=== PATIENT | female | born 1955 | race Caucasian/White ===

== ENCOUNTER → 2016-09-15 | Outpatient (CLI) | payer BC ==
[~2016-09-15] VITALS: Ht 165.1 cm; Wt 90.7 kg
[~2016-09-15] MED LIST: ASPI1TAB PO; ATOR1TAB21 PO; CELE-19 PO; LEVO175T2 PO; LIDOCAINE 2% INJ 100 MG/5 ML SDV (FOR ANES.) As Ordered ONE; NS 1,000 ML IV SCH; PROPOFOL 200 MG/20 ML VIAL As Ordered ONE; TOPR50TA PO; VITA-112 PO
--- NOTE | 2016-09-15 14:18 | ROOR ---
Patient Name: Irlanda Tabares Procedure Date: 09/15/2016 1:52 PM Date of : 1955 Age: 61 Room: [facility] Gender: Female Note Status: Finalized Procedure: Colonoscopy to Cecum + Biopsies Indications: Clinically significant diarrhea of unexplained origin, Change in bowel habits Providers: Myron Dixon MD Referring MD: DEYSI CEDILLO Requesting Provider: Medicines: Monitored Anesthesia Care Complications: No immediate complications. Procedure: Pre-Anesthesia Assessment: - The heart rate, respiratory rate, oxygen saturations, blood pressure, adequacy of pulmonary ventilation, and response to care were monitored throughout the procedure. The Colonoscope was introduced through the anus and advanced to the cecum, identified by appendiceal orifice and ileocecal valve. The colonoscopy was performed without difficulty. The patient tolerated the procedure well. The quality of the bowel preparation was excellent. Findings: The perianal and digital rectal examinations were normal. Non-bleeding internal hemorrhoids were found during retroflexion. The hemorrhoids were small and Grade I (internal hemorrhoids that do not prolapse). A diffuse area of mildly altered vascular mucosa was found in the rectum. Biopsies were taken with a cold forceps for histology. Scattered small-mouthed diverticula were found in the recto-sigmoid colon, sigmoid colon and descending colon. Biopsies for histology were taken with a cold forceps from the ascending colon, transverse colon and descending colon for evaluation of microscopic colitis. The exam was otherwise without abnormality on direct and retroflexion views. Impression: - Non-bleeding internal hemorrhoids. - Altered vascular mucosa in the rectum. Biopsied. - Diverticulosis in the recto-sigmoid colon, in the sigmoid colon and in the descending colon. - The examination was otherwise normal on direct and retroflexion views. - Biopsies were taken with a cold forceps from the ascending colon, transverse colon and descending colon for evaluation of microscopic colitis. - The exam was otherwise normal to the cecum. Recommendation: - Patient has a contact number available for emergencies. The signs and symptoms of potential delayed complications were discussed with the patient. Return to normal activities tomorrow. Written discharge instructions were provided to the patient. - Discharge patient to home. - Continue present medications. - Await pathology results. - Telephone GI clinic for pathology results in 1 week. - Repeat colonoscopy in 10 years for screening purposes. - Return to referring physician. - Use Canasa 1000 mg suppository 1 per rectum QHS. - The findings and recommendations were discussed with the patient's family. Myron Dixon MD Myron Dixon MD 09/15/2016 2:18:14 PM This report has been signed electronically. Number of Addenda: 0 Note Initiated On: 09/15/2016 1:52 PM Estimated Blood Loss: Estimated blood loss: none.
[2016-09-15 14:35] VITALS: BP 156/78
== END ==
LOC: M OPP 13:17
PROVIDERS: ATTEND Internal Medicine Gastroenterology
DX: R19.7 Diarrhea, unspecified (principal); R19.4 Change in bowel habit; K64.0 First degree hemorrhoids; K57.30 Diverticulosis of large intestine without perforation or abscess without bleeding; K62.89 Other specified diseases of anus and rectum; Z85.42 Personal history of malignant neoplasm of other parts of uterus; Z92.3 Personal history of irradiation; I10 Essential (primary) hypertension; E78.00 Pure hypercholesterolemia, unspecified; K21.9 Gastro-esophageal reflux disease without esophagitis; K44.9 Diaphragmatic hernia without obstruction or gangrene; E07.9 Disorder of thyroid, unspecified; K58.2 Mixed irritable bowel syndrome; R53.83 Other fatigue; Z79.82 Long term (current) use of aspirin; Z79.899 Other long term (current) drug therapy; Z88.0 Allergy status to penicillin

== ENCOUNTER → 2016-12-01 | Outpatient (CLI) | payer BC ==
[~2016-12-01] MED LIST changes: -LIDOCAINE 2% INJ 100 MG/5 ML SDV (FOR ANES.) As Ordered ONE; -NS 1,000 ML IV SCH; -PROPOFOL 200 MG/20 ML VIAL As Ordered ONE
--- NOTE | 2016-12-01 17:15 | REP ---
MRI right ankle without contrast: History: Right ankle pain. Comparison radiographs are from 06/20/2015. Technique: Axial, sagittal and coronal imaging planes utilized. T1, proton density and T2-weighted scans were obtained in the usual fashion with without fat saturation. MRI findings: There is both anteromedial and lateral soft tissue swelling in the subcutaneous fat layer about and above the ankle. Cortical and medullary bone signal intensity are normal however. No occult fracture is seen. There is plantar and Achilles calcaneal spurring. There is some increased signal intensity in the distal 3 cm of the Achilles tendon consistent with chronic Achilles tendinopathy. No discontinuity. Plantar fascia is smooth with no nodularity. The tibial plafond and the talar dome are intact. There is a 8 mm accessory ossicle just below the medial malleolus. The deltoid ligamentous complex is otherwise intact. The calcaneofibular, posterior talofibular, and posterior inferior tibiofibular ligaments are intact. The anterior talofibular and anterior inferior tibiofibular ligaments have an intact appearance. There is some swelling and increased T1 and increased T2 signal intensity diffusely in the tibialis posterior tendon distally. Flexor digitorum and flexor hallucis longus tendons appear intact medially. Laterally, the peroneus longus and brevis tendons are unremarkable. Sinus tarsi is unremarkable. There is minimal talonavicular spurring. No juxtaarticular cyst or mass is seen. Impression: 1. Tendonitis tendinosis change in the distal Achilles and in the distal tibialis posterior tendons. There are large heel spurs. 2. Accessory ossicle at the medial malleolus. 3. Periarticular soft tissue swelling medially and laterally at and above the ankle. 4. Minimal talonavicular spurring. Signed by Martinez Schmitt MD 12/01/2016 06:28 P
== END ==
LOC: M RAD 12:28
PROVIDERS: ATTEND Podiatrist
DX: M76.71 Peroneal tendinitis, right leg (principal); S96.811S Strain of other specified muscles and tendons at ankle and foot level, right foot, sequela; X58.XXXA Exposure to other specified factors, initial encounter; Y92.89 Other specified places as the place of occurrence of the external cause; Y93.89 Activity, other specified; Y99.8 Other external cause status

== ENCOUNTER → 2018-07-13 | Outpatient (CLI) | payer MEDICARE | LOC: M RAD 10:29 | DX: Z12.31 Encounter for screening mammogram for malignant neoplasm of breast (principal); Z78.0 Asymptomatic menopausal state; Z85.3 Personal history of malignant neoplasm of breast | CPT/HCPCS: 77067 ==

== ENCOUNTER 2019-06-20 22:28 | Emergency (ER) | payer MEDICARE ==
[~2019-06-20] VITALS: Ht 162.6 cm; Wt 100.0 kg
[~2019-06-20 22:28] MED LIST changes: -ASPI1TAB PO; +ASPI81TA26 PO; -CELE-19 PO; +CELE1CAP4 PO
[2019-06-20] MEDS ORDERED: amLODIPine 5 MG TAB PO ONE (23:00)
[2019-06-20 23:17] VITALS: BP 196/74
[2019-06-20 23:23] LABS: BASO % 0.1 % (0.0-1.0); HEMATOCRIT 41.4 % (36.0-47.0); HEMOGLOBIN 13.7 g/dl (12.0-15.5); LYMPH # 1.5 10^3/uL (1.5-5.0); LYMPH % 9.1 % (24.0-44.0); MEAN CORPUSCULAR HEMOGLOBIN 29.8 pg (27.0-33.0); MEAN CORPUSCULAR HGB CONC 33.1 g/dl (32.0-36.5); MEAN CORPUSCULAR VOLUME 90.2 fl (80.0-96.0); MONO # 0.1 10^3/uL (0.0-0.8); MONO % 0.7 % (0.0-5.0); NEUTROPHILS # 14.3 10^3/uL (1.5-8.5); NEUTROPHILS % 89.2 % (36.0-66.0); PLATELET COUNT, AUTOMATED 241 10^3/uL (150-450); RED BLOOD COUNT 4.59 10^6/uL (4.00-5.40); WHITE BLOOD COUNT 16.1 10^3/uL (4.0-10.0)
--- NOTE | 2019-06-20 23:50 | REPVR ---
PROCEDURE INFORMATION: Exam: CT Head Without Contrast Exam date and time: 06/20/2019 11:05 PM Clinical history: 64 years old, female; Headache, HTN TECHNIQUE: Imaging protocol: Computed tomography of the head without contrast. Radiation optimization: All CT scans at this facility use at least one of these dose optimization techniques: automated exposure control; mA and/or kV adjustment per patient size (includes targeted exams where dose is matched to clinical indication); or iterative reconstruction. COMPARISON: CT SINUSES 09/24/2012 2:08 PM FINDINGS: Brain: There is no evidence for an acute large vessel territorial infarct, intracranial hemorrhage, mass, mass effect, or herniation. The cortical gyration pattern, basal ganglia, thalami, and cerebellum are normal in appearance. Brainstem: Unremarkable. Midline shift: There is no midline shift. Ventricles: Normal. No ventriculomegaly. Bones/joints: Unremarkable. No acute fracture. Sinuses: Visualized sinuses are well aerated. No fluid levels. The sinuses were not fully imaged. Mastoid air cells: Visualized mastoid air cells are well aerated. Soft tissues: Unremarkable. IMPRESSION: No acute intracranial abnormality. Electronically signed by: Zach Lai On 06/20/2019 23:49:47 PM
[2019-06-20 23:52] LABS: BLOOD UREA NITROGEN 17 MG/DL (7-18); CALCIUM LEVEL 9.5 MG/DL (8.8-10.2); CARBON DIOXIDE LEVEL 21 MEQ/L (21-32); CHLORIDE LEVEL 109 MEQ/L (98-107); CK-MB VALUE MASS 1.3 NG/ML (<3.6); CPK CREATINE PHOSPHOKINASE 106 U/L (26-192); FREE T4 1.58 NG/DL (0.76-1.46); GLOMERULAR FILTRATION RATE > 60.0 (>45); GLUCOSE, FASTING 263 MG/DL (70-100); MAGNESIUM LEVEL 1.8 MG/DL (1.8-2.4); MB/CK RELATIVE INDEX 1.23 (< OR =4); POTASSIUM SERUM 4.1 MEQ/L (3.5-5.1); SODIUM LEVEL 141 MEQ/L (136-145); THYROID STIMULATING HORMONE < 0.005 uIU/ML (0.358-3.740); TROPONIN I < 0.02 NG/ML (< 0.10)
[2019-06-21] MEDS ORDERED: ISOVUE-370 76% 100ML VIAL (Q9967) As Ordered ONE (00:18)
[2019-06-21 00:47] LABS: APPEARANCE, URINE CLEAR (CLEAR); BACTERIA, URINE AUTO NEGATIVE (NEGATIVE); BILIRUBIN, URINE AUTO NEGATIVE (NEGATIVE); BLOOD, URINE BLOOD NEGATIVE (NEGATIVE); COLOR, URINE YELLOW (YELLOW); GLUCOSE, URINE (UA) AUTO 3+ mg/dL (NEGATIVE); KETONE, URINE AUTO TRACE mg/dL (NEGATIVE); LEUKOCYTE ESTERASE, URINE AUTO NEGATIVE (NEGATIVE); MUCUS, URINE SMALL (NEGATIVE); NITRITE, URINE AUTO NEGATIVE (NEGATIVE); PROTEIN, URINE AUTO 1+ mg/dL (NEGATIVE); RBC, URINE AUTO 0 /HPF (0-3); SPECIFIC GRAVITY URINE AUTO 1.037 (1.002-1.035); SQUAMOUS EPITHELIAL CELL UR AU 0 /HPF (0-6); UROBILINOGEN, URINE AUTO 0.2 mg/dL (0.0-2.0); WBC, URINE AUTO 0 /HPF (0-3)
[2019-06-21] MEDS ORDERED: KETOROLAC 30 MG/ML VIAL (J1885) IV ONE (01:00)
--- NOTE | 2019-06-21 01:00 | REPVR ---
PROCEDURE INFORMATION: Exam: CT Angiography Chest With Contrast Exam date and time: 06/21/2019 12:24 AM Clinical history: 64 years old, female; Palpitations, tachycardia, and elevated d-dimer. TECHNIQUE: Imaging protocol: Computed tomographic angiography of the chest with intravenous contrast. 3D rendering: MIP reconstructed images were created and reviewed. Radiation optimization: All CT scans at this facility use at least one of these dose optimization techniques: automated exposure control; mA and/or kV adjustment per patient size (includes targeted exams where dose is matched to clinical indication); or iterative reconstruction. Contrast material: ISOVUE 370; Contrast volume: 75 ml; Contrast route: IV; COMPARISON: CT ANGIO CHEST 10/26/2012 3:01 PM FINDINGS: Pulmonary arteries: No pulmonary embolism is identified. Great vessels off aortic arch: The brachiocephalic artery, imaged proximal portion of the left common carotid artery, and left subclavian artery are intact. No significant stenosis or occlusion of these vessels is noted. Aorta: There is no thoracic aortic aneurysm, pseudoaneurysm, intramural hematoma, penetrating atherosclerotic ulcer, or dissection. Thyroid: Unremarkable. No pulmonary embolism is identified. Lungs: There is mild atelectasis in the right lower lobe and lingula. There is a 7 mm solid pulmonary nodule in the superior segment of the left lower lobe (image 59 of the axial series 401), which is unchanged compared to the prior CTA on 10/26/2012 and for which no further followup is necessary given its stability over 6 years. The lungs are otherwise clear. There is no lung consolidation, pulmonary infarct, or mass. No emphysematous changes or interstitial lung disease is noted. The major airways are patent. Pleural space: Unremarkable. No pneumothorax. No pleural effusion. Heart: No cardiomegaly. The ratio of the diameter of the right ventricle to the diameter of the left ventricle measures less than 1, which is within normal limits and there is no evidence for a right ventricular strain. There are coronary artery calcifications. There is a trace amount of fluid in the pericardial sac. Mediastinum: There is a large hiatal hernia. No mediastinal mass, hemorrhage, or pneumomediastinum is noted. Liver: There is a 1 cm lesion demonstrating peripheral nodular enhancement in the anterior superior segment 8 of the right hepatic lobe, which is stable compared to the prior CTA on 10/26/2012 and compatible with a hemangioma for which follow-up is not necessary. The liver was not fully imaged. Lymph nodes: Normal. No enlarged lymph nodes. Bones/joints: The imaged bony structures are intact. There is no suspicious osteolytic or osteoblastic lesion. There are degenerative changes in the lower cervical spine and thoracic spine. Soft tissues: Unremarkable. IMPRESSION: 1. No acute findings in the chest. No pulmonary embolism. 2. Large hiatal hernia. Electronically signed by: Zach Lai On 06/21/2019 00:59:29 AM
[2019-06-21 01:57] LABS: HEMOGLOBIN A1c 5.8 %
[2019-06-21 02:04] VITALS: BP 178/82
[2019-06-21] MEDS ORDERED: NORV5TAB PO (02:18)
--- NOTE | 2019-06-21 07:10 | REP ---
Portable chest, 11:11 p.m., single frontal view: Comparison is 10/26/2012. The lung hollins are clear. The cardiac size is normal. The brandon, mediastinum, skeletal structures are. Impression: Negative portable chest. Electronically Signed by Michael Barnes MD 06/21/2019 07:02 A
--- NOTE | 2019-06-22 05:33 | ECGEPIP ---
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
== END 2019-06-21 02:49 | disposition home or self-care (01) ==
LOC: M ED 22:28
DX: I10 Essential (primary) hypertension (principal); R73.01 Impaired fasting glucose; R51 Headache; R00.0 Tachycardia, unspecified; E78.5 Hyperlipidemia, unspecified; E03.9 Hypothyroidism, unspecified; Z88.0 Allergy status to penicillin; Z88.1 Allergy status to other antibiotic agents; Z79.899 Other long term (current) drug therapy; Z79.82 Long term (current) use of aspirin
CPT/HCPCS: 70450; 71045; 71275; 80048; 81001; 82550; 82553; 83036; 83735; 84439; 84443; 84484; 85025; 85379; 93005; 93041; 94760; 96374; 99285; J1885; Q9967

== ENCOUNTER → 2019-09-12 | Outpatient (CLI) | payer MEDICARE ==
[~2019-09-12] MED LIST changes: +NORV5TAB PO
--- NOTE | 2019-09-12 11:57 | REPMRS ---
Patient History The patient states she had a clinical breast exam in January 2019. Patient is postmenopausal and has history of uterine cancer at age 59. No known family history of cancer. Taking unspecified hormones for 12 years. 3D TOMOSYNTHESIS WAS PERFORMED. [facility] lifetime risk for breast cancer is 6.2%. Digital Mammo Screening Bilat: September 12, 2019 - Exam #: [id number] Bilateral CC and MLO view(s) were taken. Technologist: Briseyda Kelly, Technologist Prior study comparison: July 13, 2018, bilateral digital mammo screening bilat performed at [facility]. 2016, bilateral screening 3D/tomosynthesis, performed at [facility]. 2015, bilateral screening 3D/tomosynthesis, performed at [facility]. August 01, 2015, bilateral digital woman screen mammo, performed at [facility]. FINDINGS: There are scattered fibroglandular densities. There has been no change in the appearance of the mammogram from the prior studies. There is a mild amount of residual fibroglandular tissue which is fairly symmetric. There is no interval development of dominant mass, architectural distortion, or clustered microcalcification suggestive of malignancy. Assessment: BI-RADS/ACR category 1 mammogram. Negative Mammogram. Recommendation Routine screening mammogram in 1 year (for women over age 40). This mammogram was interpreted with the aid of an FDA-approved computer-aided dectection system. Electronically Signed By: Michael Hood MD 09/12/19 [id number]
== END ==
LOC: M RAD 09:59
PROVIDERS: ATTEND Obstetrics & Gynecology
DX: Z12.31 Encounter for screening mammogram for malignant neoplasm of breast (principal)

== ENCOUNTER 2020-01-26 18:35 | Emergency (ER) | payer MEDICARE ==
[~2020-01-26] VITALS: Ht 165.1 cm; Wt 102.2 kg
[2020-01-26] MEDS ORDERED: NS 500 ML IV ONE (19:00)
[2020-01-26 19:19] LABS: BASO # 0.1 10^3/uL (0.0-0.2); BASO % 0.6 % (0.0-1.0); EOS # 0.3 10^3/uL (0.0-0.5); EOS % 2.6 % (0.0-3.0); HEMATOCRIT 40.2 % (36.0-47.0); HEMOGLOBIN 13.7 g/dl (12.0-15.5); LYMPH # 2.9 10^3/uL (1.5-5.0); LYMPH % 25.2 % (24.0-44.0); MEAN CORPUSCULAR HEMOGLOBIN 30.6 pg (27.0-33.0); MEAN CORPUSCULAR HGB CONC 34.1 g/dl (32.0-36.5); MEAN CORPUSCULAR VOLUME 89.7 fl (80.0-96.0); MONO # 0.9 10^3/uL (0.0-0.8); NEUTROPHILS # 7.3 10^3/uL (1.5-8.5); NEUTROPHILS % 62.8 % (36.0-66.0); PLATELET COUNT, AUTOMATED 245 10^3/uL (150-450); RED BLOOD COUNT 4.48 10^6/uL (4.00-5.40); WHITE BLOOD COUNT 11.7 10^3/uL (4.0-10.0)
[2020-01-26 19:43] LABS: ALBUMIN 3.8 GM/DL (3.2-5.2); ALT/SGPT 41 U/L (12-78); BILIRUBIN,DIRECT 0.2 MG/DL (0.0-0.2); BILIRUBIN,TOTAL 0.4 MG/DL (0.2-1.0); BLOOD UREA NITROGEN 17 MG/DL (7-18); CALCIUM LEVEL 8.8 MG/DL (8.8-10.2); CARBON DIOXIDE LEVEL 26 MEQ/L (21-32); CHLORIDE LEVEL 109 MEQ/L (98-107); GLOMERULAR FILTRATION RATE > 60.0 (>45); GLUCOSE, FASTING 95 MG/DL (70-100); LIPASE 152 U/L (73-393); POTASSIUM SERUM 4.1 MEQ/L (3.5-5.1); SODIUM LEVEL 142 MEQ/L (136-145); TOTAL PROTEIN 7.7 GM/DL (6.4-8.2)
--- NOTE | 2020-01-26 20:17 | REPVR ---
PROCEDURE INFORMATION: Exam: CT Abdomen And Pelvis Without Contrast Exam date and time: 01/26/2020 7:54 PM Age: 64 years old Clinical indication: Abdominal pain; Additional info: Right groin pain ? ureteral stone, less suspicion for appy TECHNIQUE: Imaging protocol: Computed tomography of the abdomen and pelvis without contrast. Radiation optimization: All CT scans at this facility use at least one of these dose optimization techniques: automated exposure control; mA and/or kV adjustment per patient size (includes targeted exams where dose is matched to clinical indication); or iterative reconstruction. COMPARISON: CT ABD PELVIS W/O FOL BY WIT 02/20/2014 11:16 AM FINDINGS: Mediastinal space: A small to moderate hiatal hernia is present. Liver: Normal. No mass. Gallbladder and bile ducts: Normal. No calcified stones. No ductal dilation. Pancreas: Normal. No ductal dilation. Spleen: Normal. No splenomegaly. Adrenals: Normal. No mass. Kidneys and ureters: Punctate nonobstructive calculi right kidney. There is a 4 mm. obstructive ureteral calculus located right UV junction resulting in [id number] proximal hydroureteronephrosis. There is mild periureteral and perinephric stranding. No urinoma demonstrated. Stomach and bowel: Moderate diverticulosis is present in the distal colon. No diverticulitis. Appendix: No evidence of appendicitis. Intraperitoneal space: Unremarkable. No free air. No significant fluid collection. Vasculature: Unremarkable. No abdominal aortic aneurysm. Lymph nodes: Unremarkable. No enlarged lymph nodes. Bladder: Unremarkable as visualized. Reproductive: There has been a hysterectomy. Bones/joints: There is a grade 1 anterior spondylolisthesis of L5 on S1 secondary to bilateral L5 spondylolysis. Mild central spinal stenosis L2-L3, moderate central spinal stenosis L3-L4 and severe central spinal stenosis L4-L5. Soft tissues: Unremarkable. Other findings: Osteoporosis. IMPRESSION: 1. There is a grade 1 anterior spondylolisthesis of L5 on S1 secondary to bilateral L5 spondylolysis. 2. A small to moderate hiatal hernia is present. 3. There is a 4 mm. obstructive ureteral calculus located right UV junction resulting in [id number]-[id number] proximal hydroureteronephrosis. There is mild periureteral and perinephric stranding. No urinoma demonstrated. 4. Moderate diverticulosis is present in the distal colon. No diverticulitis. 5. There has been a hysterectomy. Electronically signed by: Nicola Butt On 01/26/2020 20:16:48 PM
[2020-01-26] MEDS ORDERED: ONDANSETRON 4MG/2ML VIAL IV ONE (20:45)
[2020-01-26] MEDS ORDERED: KETOROLAC 30 MG/ML 1ML VIAL IV ONE (20:45)
[2020-01-26] MEDS ORDERED: FLOM0.4C39 PO (20:45)
[2020-01-26] MEDS ORDERED: ONDA4TAB6 PO (20:45)
[2020-01-26] MEDS ORDERED: KETO10TAB PO (21:05)
[2020-01-26] MEDS ORDERED: NORCO, ANEXSIA 5/325MG TABLET (HYDROcodone/ACETAMINOPHEN) PO ONE (21:15)
[2020-01-26] MEDS ORDERED: ONDANSETRON 4 MG ORAL DISINTEGRATING TAB PO ONE (21:15)
[2020-01-26 21:21] VITALS: BP 146/74
== END 2020-01-26 21:24 | disposition home or self-care (01) ==
LOC: M ED 18:35
DX: N13.0 Hydronephrosis with ureteropelvic junction obstruction (principal); Z85.42 Personal history of malignant neoplasm of other parts of uterus; I10 Essential (primary) hypertension; E78.00 Pure hypercholesterolemia, unspecified; E03.9 Hypothyroidism, unspecified; Z79.899 Other long term (current) drug therapy; Z79.82 Long term (current) use of aspirin; Z88.0 Allergy status to penicillin; Z88.1 Allergy status to other antibiotic agents
CPT/HCPCS: 74176; 80048; 80076; 81001; 83690; 85025; 96361; 96374; 96375; 99284; J1885; J2405; Q0162

== ENCOUNTER → 2020-06-11 | Outpatient (CLI) | payer MEDICARE ==
[~2020-06-11] MED LIST changes: +FLOM0.4C39 PO; +KETO10TAB PO; +ONDA4TAB6 PO; +SYNT150T PO
[2020-06-11 09:39] LABS: HEMOGLOBIN 13.1 g/dl (12.0-15.5); MEAN CORPUSCULAR HEMOGLOBIN 29.8 pg (27.0-33.0); MEAN CORPUSCULAR HGB CONC 32.8 g/dl (32.0-36.5); MEAN CORPUSCULAR VOLUME 91.1 fl (80.0-96.0); PLATELET COUNT, AUTOMATED 230 10^3/uL (150-450); RED BLOOD COUNT 4.39 10^6/uL (4.00-5.40); WHITE BLOOD COUNT 10.6 10^3/uL (4.0-10.0)
[2020-06-11 10:00] LABS: ERYTHROCYTE SEDIMENTATION RATE 28 mm/hr (0-30)
[2020-06-11 10:13] LABS: ALBUMIN 3.8 GM/DL (3.2-5.2); ALT/SGPT 26 U/L (12-78); BILIRUBIN,TOTAL 0.5 MG/DL (0.2-1.0); BLOOD UREA NITROGEN 16 MG/DL (7-18); CALCIUM LEVEL 9.8 MG/DL (8.8-10.2); CARBON DIOXIDE LEVEL 27 MEQ/L (21-32); CHLORIDE LEVEL 109 MEQ/L (98-107); CREATININE FOR GFR 0.79 MG/DL (0.55-1.30); GLOMERULAR FILTRATION RATE > 60.0 (>45); GLUCOSE, FASTING 88 MG/DL (70-100); POTASSIUM SERUM 4.4 MEQ/L (3.5-5.1); SODIUM LEVEL 141 MEQ/L (136-145); TOTAL PROTEIN 7.6 GM/DL (6.4-8.2)
--- NOTE | 2020-06-11 10:44 | REP ---
INDICATION: PRE-OP hypertension. COMPARISON: 06/20/2019, 10/26/2012. TECHNIQUE: PA/Lateral FINDINGS: The heart is normal in size. There is no hilar or mediastinal adenopathy. The lungs are clear. The pleural angles are unremarkable. Bones and soft tissues are unremarkable, except for degenerative changes of the spine. IMPRESSION: No acute pulmonary disease. <Electronically signed by Michael Hood > 06/11/20 [id number]
--- NOTE | 2020-06-11 13:31 | ECGEPIP ---
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 Decreased heart rate andPoor R wave progression new compared with 06/20/2019. Electronically Signed on 06-11-2020 13:30:50 EDT by Winston Acuña
== END ==
LOC: M LAB 08:39
PROVIDERS: ATTEND Orthopaedic Surgery
DX: Z01.818 Encounter for other preprocedural examination (principal); M17.12 Unilateral primary osteoarthritis, left knee; R94.31 Abnormal electrocardiogram [ECG] [EKG]

== ENCOUNTER → 2020-06-14 | Outpatient (CLI) | payer MEDICARE ==
[~2020-06-14] MED LIST changes: +ECOT81TA5 PO; +PERC5TAB12 PO
== END ==
LOC: M WUC 09:58
PROVIDERS: ATTEND Physician Assistant
DX: Z01.818 Encounter for other preprocedural examination (principal); Z84.81 Family history of carrier of genetic disease

== ENCOUNTER → 2020-06-20 | Outpatient (CLI) | payer MEDICARE ==
[~2020-06-20] MED LIST changes: -ECOT81TA5 PO; -PERC5TAB12 PO
== END ==
LOC: M LABSMTC 11:56
PROVIDERS: ATTEND Anesthesiology
DX: Z01.818 Encounter for other preprocedural examination (principal)
CPT/HCPCS: C9803; U0003

== ENCOUNTER 2020-06-25 09:01 | Inpatient (IN) | payer MEDICARE ==
--- NOTE | 2020-06-20 07:22 | HPE ---
DATE OF ANTICIPATED ADMISSION: 06/25/2020 ATTENDING PHYSICIAN: Dr. Rose CHIEF COMPLAINT: Right knee pain and stiffness. HISTORY: Patient is a 65-year-old male who had progressively worsening right knee pain and stiffness. She failed to improve with conservative measures. She continues to have symptoms with weightbearing activities and activities of daily living. She has consented for an elective right total knee arthroplasty with Dr. Rose for her continued symptoms. Medical optimization completed with Dr. Bradley and is pending cardiac clearance from Dr. Rodriguez. CURRENT MEDICATIONS: - gabapentin 100 mg three times daily - levothyroxine 150 mcg daily - Celebrex 200 mg daily - Lipitor 20 mg daily - Toprol-XL 50 mg daily - vitamin D 1000 units two by mouth daily - Nexium 40 mg daily - amlodipine 5 mg daily ALLERGIES: PENICILLIN, ERYTHROMYCIN. CHRONIC MEDICAL CONDITIONS: 1. Hypertension. 2. Solitary pulmonary nodule. 3. Cardiomegaly. 4. Gastroesophageal reflux disease. 5. Hypercalcemia. 6. Vitamin D deficiency. 7. Elevated transaminases. 8. Osteoarthritis. 9. Hyperlipidemia. 10. Hypothyroid. 11. History of malignant neoplasm of the uterus. PAST SURGICAL HISTORY: Hysterectomy with bilateral salpingo-oophorectomy (BSO). SOCIAL HISTORY: Patient is and lives at home with spouse. Patient denies tobacco use and rarely uses alcohol. REVIEW OF SYSTEMS: Patient denies fevers, chills, nausea, vomiting, or diarrhea. Denies chest pain, shortness of breath, lightheadedness, dizziness, or headaches. She denies any recent upper respiratory or urinary tract infection symptoms. She does continue to have right knee pain with weightbearing activities and activities of daily living. PHYSICAL EXAMINATION: GENERAL: Well-nourished, well-developed female in no apparent distress. She is alert, oriented, and cooperative. Mood and affect are appropriate. VITAL SIGNS: Height 64 inches, weight 219 pounds, temperature 97.1, heart rate 70, respirations 20, blood pressure 150/70. NECK: Supple without lymphadenopathy. HEART: Regular rate and rhythm. LUNGS: Clear to auscultation bilaterally. Breathing is regular and nonlabored. ABDOMEN: Soft and nontender. Bowel sounds are present. MUSCULOSKELETAL: Right knee exhibits no erythema, edema, or ecchymosis. There is tenderness along the medial and lateral joint lines. Patient can extend knee to about 5 degrees and flex to 100 degrees. Right lower extremity strength is 5/5. There was no hip irritability elicited with range of motion testing. Calf is soft and nontender without evidence of deep venous thrombosis (DVT). She is neurovascularly intact distally. Patient is walking with a slight limp favoring the right lower extremity. She is not using any assistive devices for ambulation. LABORATORY DATA: EKG: Sinus rhythm with poor R-wave progression. Chest x-ray showing no acute pulmonary disease. Right knee x-ray notable for end-stage degenerative changes. IMPRESSION: Right knee degenerative arthritis with x-rays notable for end-stage degenerative changes. PLAN: Patient has consented for an elective right total knee arthroplasty with Dr. Rose for her continued symptoms. Medical optimization completed with Dr. Bradley and is pending a cardiac clearance with Dr. Rodriguez. Patient will start using her Bactroban and Hibiclens as directed. She will call [facility] later on this week to get a report time for her surgery on Thursday. She understands to follow her primary career professional's recommendations on how to take her daily medications. She will be nothing by mouth after midnight the night prior to surgery. GURPREET
[~2020-06-25] VITALS: Ht 162.6 cm; Wt 99.5 kg
[~2020-06-25 09:01] MED LIST changes: +ACETAMINOPHEN 500 MG TAB PO ONE; +LR 1,000 ML IV ONE; +ceFAZolin SOD 2 GM in IV 1 EA IV ONE; +fentaNYL 100 MCG/2 ML INJECTION (J3010) IV ONE; +fentaNYL 100 MCG/2 ML INJECTION (J3010) IV SCH
[2020-06-25 10:08] LABS: INR 0.87
[2020-06-25] MEDS ORDERED: propofoL 200 MG/20 ML VIAL As Ordered ONE ×2 (10:18→13:16)
[2020-06-25] MEDS ORDERED: propofoL 500 MG/50 ML VIAL As Ordered ONE (10:18)
[2020-06-25] MEDS ORDERED: LIDOCAINE 2% 100MG/5ML SDV (FOR ANES.) As Ordered ONE (10:18)
[2020-06-25] MEDS ORDERED: fentaNYL 100 MCG/2 ML INJECTION (J3010) As Ordered ONE ×2 (10:18→10:42)
[2020-06-25] MEDS ORDERED: MIDAZOLAM INJ 2MG/2ML VIAL (J2250 PER 1MG) As Ordered ONE ×2 (10:42→11:48)
[2020-06-25] MEDS ORDERED: TRANEXAMIC ACID 100 MG/ML 10ML VIAL As Ordered ONE (11:42)
[2020-06-25] MEDS ORDERED: BUPIVACAINE HCL 0.25% 30ML VIAL As Ordered ONE (11:42)
[2020-06-25] MEDS ORDERED: EPINEPHrine INJ 1 MG/ML 1ML AMP As Ordered ONE (11:43)
[2020-06-25] MEDS ORDERED: CLINDAMYCIN INJ 900MG/6ML VIAL As Ordered ONE (11:43)
[2020-06-25] MEDS ORDERED: BUPIVACAINE LIPOSOME/PF 1.3% 20ML VIAL (13.3MG/ML)(EXPAREL)(C9290 PER1MG) As Ordered ONE (11:43)
[2020-06-25] MEDS ORDERED: BUPIVACAINE HCL 0.25% 10ML VIAL As Ordered ONE (11:54)
[2020-06-25] MEDS ORDERED: MIDAZOLAM INJ 2MG/2ML VIAL (J2250 PER 1MG) IV ONE (12:00)
--- NOTE | 2020-06-25 14:42 | REP ---
INDICATION: POST OP IN PACU. COMPARISON: None. TECHNIQUE: AP and lateral FINDINGS: Skin armand anteriorly and 3 components of a right total knee arthroplasty are present and well aligned in relationship to the [place] bone and each other. Air and fluid in the joint and subcutaneous air about the knee has an immediate normal postoperative finding. IMPRESSION: Status post right total knee arthroplasty. <Electronically signed by Sam Guzman > 06/25/20 [id number]
[2020-06-25] MEDS ORDERED: ACETAMINOPHEN TAB 650MG DOSE (2X325MG) PO PRN (14:45)
[2020-06-25] MEDS ORDERED: ONDANSETRON 4MG/2ML VIAL IV PRN ×2 (14:45)
[2020-06-25] MEDS ORDERED: PERCOCET 5MG/325MG TAB PO PRN ×3 (14:45→21:00)
[2020-06-25] MEDS ORDERED: fentaNYL 100 MCG/2 ML INJECTION (J3010) IV PRN (14:45)
[2020-06-25] MEDS ORDERED: MORPHINE 4 MG/ML 1ML VIAL/SYRINGE (J2270) IV PRN (14:45)
[2020-06-25] MEDS ORDERED: MORPHINE 2 MG/ML 1ML VIAL (J2270) IV PRN ×2 (14:45)
[2020-06-25] MEDS ORDERED: oxyCODONE 5MG TAB PO PRN (14:45)
[2020-06-25] MEDS ORDERED: METOCLOPRAMIDE INJ 10MG/2ML VIAL (J2765 PER 1) IV PRN (14:45)
[2020-06-25] MEDS ORDERED: LR 1,000 ML IV SCH (14:45)
[2020-06-25 15:15] VITALS: BP 150/81
[2020-06-25] MEDS ORDERED: ROPIvacaine 0.5% 30ML INJECTION (J2795 PER 1MG) ONE (15:17)
[2020-06-25] MEDS ORDERED: dexameTHASONE 10MG/1ML VIAL PRES.FREE (J1100 PER 1MG) ONE (15:17)
[2020-06-25] MEDS ORDERED: EPINEPHrine INJ 1 MG/ML 1ML AMP ONE (15:17)
[2020-06-25 15:45] VITALS: BP 173/91
[2020-06-25] MEDS: LR 1,000 ML IV SCH (15:48)
[2020-06-25 16:45] VITALS: BP 145/91
[2020-06-25 17:45] VITALS: BP 135/86
--- NOTE | 2020-06-25 17:55 | CR.PDOC ---
General Date of Consultation: Jun 25, 2020 Consultation REASON FOR CONSULTATION/CHIEF COMPLAINT: Medical management HISTORY OF PRESENT ILLNESS: Patient is 65 years old female with past medical history of hypertension, cardiomegaly presented to the hospital for elective right total knee replacement. Patient tolerates procedure well. The surgery was done on 06/25/20. Patient denied fever, chills, nausea, vomiting, diarrhea dysuria ALLERGIES: Please see below. HOME MEDICATIONS: Please see below. PAST MEDICAL HISTORY: 1. Hypertension. 2. Solitary pulmonary nodule. 3. Cardiomegaly. 4. Gastroesophageal reflux disease. 5. Hypercalcemia. 6. Vitamin D deficiency. 7. Elevated transaminases. 8. Osteoarthritis. 9. Hyperlipidemia. 10. Hypothyroid. 11. History of malignant neoplasm of the uterus. PAST SURGICAL HISTORY: Right total knee replacement Hysterectomy with bilateral salpingo-oophorectomy (BSO). FAMILY HISTORY: I personally reviewed the history and found not pertinent SOCIAL HISTORY: Marital status and/or living arrangements: Patient denied smoking, alcohol abuse or drug abuse history REVIEW OF SYSTEMS: 10 point review systems negative except as listed above PHYSICAL EXAMINATION: VITAL SIGNS: Please see below. Objective: GENERAL APPEARANCE: NAD HEENT: no scleral icterus, no JVD, EOMI CARDIOVASCULAR: S1S2 LUNGS: CTA ABDOMEN: soft & not tender w palpitation MUSCULOSKELETAL: no cyanosis, no swelling INTEGUMENT: no generalized palor NEUROLOGICAL: cranial nerve function from 2-12 intact intact, follows commands, speech not dysarthric LABORATORY DATA: Please see below. ASSESSMENT/PLAN: Patient is 65 years old female with past medical history of hypertension, cardiomegaly presented to the hospital for elective right total knee replacement. Patient tolerates procedure well. The surgery was done on 06/25/20. Patient denied fever, chills, nausea, vomiting, diarrhea dysuria Hypertension Continue home cardioprotective medications Status post right knee replacement Pain management Anticoagulation per primary team Hypothyroidism Continue levothyroxine Vital Signs/I&O Vital Signs Date Time Temp Pulse Resp B/P (MAP) Pulse Ox O2 Delivery O2 Flow Rate FiO2 06/25/20 16:45 97.8 69 17 145/91 (109) 98 Room Air 06/25/20 12:00 2 Laboratory Data Labs 24H Laboratory Tests 2 06/25/20 09:37: Prothrombin Time 12.0, Prothromb Time International Ratio 0.87 Allergies Coded Allergies: Penicillins (Verified Allergy, Intermediate, hives, 06/20/19) erythromycin base (Verified Adverse Reaction, Mild, nausea/vomiting, 06/20/19) Home Medications Scheduled Amlodipine Besylate (Norvasc) 5 Mg Tablet, 1 TAB PO DAILY for 30 Days, #30 Atorvastatin Calcium (Atorvastatin Calcium) 20 Mg Tab, 20 MG PO DAILY, (Reported) Celecoxib (Celebrex) 200 Mg Cap, 200 MG PO DAILY, (Reported) Cholecalciferol (Vitamin D3) (Vitamin D3) 1,000 Unit Tab, 1,000 UNIT PO DAILY, (Reported) Levothyroxine Sodium (Synthroid) 150 Mcg Tablet, 150 MCG PO DAILY, (Reported) Metoprolol Succinate (Toprol Xl) 50 Mg Tab, 50 MG PO DAILY, (Reported) JOSH FLOYD DO Jun 25, 2020 17:55
[2020-06-25 18:44] VITALS: BP 137/86
[2020-06-25] MEDS: ceFAZolin SOD 2 GM in IV 1 EA IV SCH (20:42)
[2020-06-25] MEDS: ASPIRIN 81 MG ENTERIC TAB PO SCH (20:43)
[2020-06-25] MEDS: PERCOCET 5MG/325MG TAB PO PRN (21:30)
[2020-06-25 22:00] VITALS: BP 163/84
[2020-06-26] MEDS: LR 1,000 ML IV SCH ×3 (00:45→19:59)
[2020-06-26 02:00] VITALS: BP 163/85
[2020-06-26] MEDS: PERCOCET 5MG/325MG TAB PO PRN ×5 (02:49→20:21)
[2020-06-26] MEDS: ceFAZolin SOD 2 GM in IV 1 EA IV SCH ×2 (04:51→12:11)
[2020-06-26 06:00] VITALS: BP 158/80
[2020-06-26] MEDS: LEVOTHYROXINE 150MCG TABLET (0.15MG) PO SCH (06:15)
[2020-06-26] MEDS ORDERED: ECOT81TA5 PO (07:26)
[2020-06-26] MEDS ORDERED: PERC5TAB12 PO (07:26)
[2020-06-26 07:59] LABS: HEMATOCRIT 36.5 % (36.0-47.0); HEMOGLOBIN 11.6 g/dl (12.0-15.5); MEAN CORPUSCULAR HEMOGLOBIN 28.6 pg (27.0-33.0); MEAN CORPUSCULAR HGB CONC 31.8 g/dl (32.0-36.5); MEAN CORPUSCULAR VOLUME 89.9 fl (80.0-96.0); PLATELET COUNT, AUTOMATED 302 10^3/uL (150-450); RED BLOOD COUNT 4.06 10^6/uL (4.00-5.40); WHITE BLOOD COUNT 23.2 10^3/uL (4.0-10.0)
[2020-06-26] MEDS: MOM 30ML SUSPENSION UDC PO SCH (07:59)
[2020-06-26] MEDS: CelecoXIB (CeleBREX) 100 MG CAP PO SCH (08:00)
[2020-06-26] MEDS: ASPIRIN 81 MG ENTERIC TAB PO SCH ×2 (08:00→20:20)
[2020-06-26] MEDS: ATORVASTATIN 20 MG TAB PO SCH (08:01)
[2020-06-26] MEDS: METOPROLOL SUCC (TopROL XL) 50MG **XL** TAB PO SCH (08:01)
[2020-06-26] MEDS: VITAMIN D 1,000 INTERNATIONAL UNITS TABLET PO SCH (08:01)
[2020-06-26] MEDS: MIRALAX *UNIT DOSE* 17GM PACKET PO SCH (08:02)
[2020-06-26] MEDS: amLODIPine 10 MG TAB PO SCH (08:02)
[2020-06-26 08:23] LABS: ALBUMIN 3.4 GM/DL (3.2-5.2); ALT/SGPT 24 U/L (12-78); BILIRUBIN,TOTAL 0.4 MG/DL (0.2-1.0); BLOOD UREA NITROGEN 14 MG/DL (7-18); CALCIUM LEVEL 9.3 MG/DL (8.8-10.2); CARBON DIOXIDE LEVEL 25 MEQ/L (21-32); CHLORIDE LEVEL 106 MEQ/L (98-107); CREATININE FOR GFR 0.83 MG/DL (0.55-1.30); GLOMERULAR FILTRATION RATE > 60.0 (>45); GLUCOSE, FASTING 123 MG/DL (70-100); POTASSIUM SERUM 3.9 MEQ/L (3.5-5.1); SODIUM LEVEL 140 MEQ/L (136-145); TOTAL PROTEIN 7.8 GM/DL (6.4-8.2)
[2020-06-26 10:00] VITALS: BP 163/75
--- NOTE | 2020-06-26 10:24 | IPNPDOC ---
Date Seen The patient was seen on 06/26/20. Progress Note SUBJECTIVE: Patient was seen and examined this morning. She currently has no new complaints. She is s/p day 1 of right total knee replacement. She denies any pain. She was planned to be discharged today however was unable to tolerate physical therapy. Patient is planned to try again this afternoon. She otherwise has no new complaints. OBJECTIVE PHYSICAL EXAMINATION: VITAL SIGNS: Please see below. GENERAL: Awake, alert, and oriented. Appears in no acute distress. Lying comfortably in bed. HEENT: Atraumatic normocephalic. Eyes are nonicteric. Trachea is midline CARDIOVASCULAR: Normal S1, S2. Regular rate and rhythm. No clicks, rubs, or murmurs RESPIRATORY: Clear vesicular breath sounds bilaterally. Slightly decreased in the base. No wheezes, rhonchi or rales. ABDOMINAL: Soft, nondistended. Obese. Hypoactive bowel sounds. Nontender. No rebound tenderness or guarding EXTREMITIES: No edema. right knee bandaged. Full and equal pulses bilaterally NEUROLOGICAL: No focal neurological deficits PSYCHOLOGICAL: Mood and affect appear appropriate LABORATORY DATA, IMAGING STUDIES, MICROBIOLOGY: Please see below. DVT prophylaxis ordered?: Mechanical ASSESSMENT AND PLAN: Patient is a 65 year old female with a past medical history significant for osteoarthritis of the knees, hypertension, obesity, hyperlipidemia, and hypothyroidism who is seen for medical consult after a total right knee replacement. PROBLEMS: 1. Osteoarthritis s/p day 1 Total right knee replacement -Patient is day 1 total right knee replacement. Pain control per Orthopedic surgery -Patient planned to be discharged per PT/OT clearance -Patient on Aspirin and TEDS and Sequentials 2. Hypertension -Patient remains normotensive -Will continue home medications 3. Hypothyroidism -Continue home Synthroid 4. Hyperlipidemia -Continue Lipitor DISPOSITION: No acute events overnight. Patient is medically stable. Recommend continued outpatient follow-up for chronic medical conditions after discharge Attending Note: Patient seen and examined independently. Agree with resident's note. VS, I&O, 24H, Fishbone Vital Signs/I&O Vital Signs Date Time Temp Pulse Resp B/P (MAP) Pulse Ox O2 Delivery O2 Flow Rate FiO2 06/26/20 08:40 19 06/26/20 08:01 84 134/65 06/26/20 06:00 98.0 95 Room Air 06/25/20 12:00 2 I&O- Last 24 Hours up to 6 AM 06/26/20 06:00 Intake Total 4400 ml Output Total 620 ml Balance 3780 ml Laboratory Data 24H LABS Laboratory Tests 2 06/26/20 07:38: Nucleated Red Blood Cells % (auto) 0.0, Anion Gap 9, Glomerular Filtration Rate > 60.0, Calcium Level 9.3, Total Bilirubin 0.4, Aspartate Amino Transf (AST/SGOT) 19, Alanine Aminotransferase (ALT/SGPT) 24, Alkaline Phosphatase 104, Total Protein 7.8, Albumin 3.4, Albumin/Globulin Ratio 0.8L CBC/BMP Laboratory Tests 06/26/20 07:38 SUKHDEV WILL DO Jun 26, 2020 10:24 BEBO JHAVERI MD Jun 26, 2020 17:30
[2020-06-26 14:00] VITALS: BP 138/63
--- NOTE | 2020-06-26 14:59 | RO ---
DATE OF OPERATION: 06/25/2020 PREOPERATIVE DIAGNOSIS: Right knee degenerative joint arthritis. POSTOPERATIVE DIAGNOSIS: Right knee degenerative joint arthritis. PROCEDURE: Right total knee arthroplasty using a size 5 Attune cruciate- retaining femoral component with a size 5 tibial tray with a 6-mm rotating platform and polyethylene insert and a 35 mm polyethylene button. Components were made by [employer]. It was an Attune knee. SURGEON: Angelica Rose M.D. BENDING ROLL HAND: Ms. Jaqueline Sarmiento ANESTHESIA: Spinal with right femoral nerve block. COMPLICATIONS: None. ESTIMATED BLOOD LOSS: 20 mL. SPECIMENS: Joint surface. DESCRIPTION OF PROCEDURE: Antibiotics were given intravenously preoperatively. Successful right femoral nerve block and then a spinal anesthetic were induced. It is noteworthy that several days before the surgery she desired to have her right knee replaced rather than the left. Her right lower extremity was then carefully prepped and draped in the usual sterile fashion and then elevated, and after appropriate timeout and confirmation that we were doing the right knee, the tourniquet was inflated. A longitudinal incision was made for a medial parapatellar approach to the knee. Bovie cautery was used to coagulate crossing vessels. Medial parapatellar arthrotomy was performed. Subperiosteal dissection along the proximal, medial, and lateral tibial plateaus were performed and then we everted the patella and flexed the knee, debrided the anterior cruciate ligament (ACL). The drill was placed down the center of the femoral canal followed by the intramedullary wilmer. The distal femoral cutting jig set at a 9-mm resection level at 5 degree valgus for a right knee. The distal femoral cut was performed. AD sizing jig measured for a size 5 femoral component. Three degrees of external rotation was dialed in for a right knee and the pins placed. The 4-in-1 block applied and the anteroposterior chamfer cuts performed. We then placed the notch osteotomy jig and performed the notch plasty. We then exposed the proximal tibia and used the extramedullary tibial jig to estimate being parallel to the mechanical axis referencing off the medial tibial condyle at 4-mm resection level. The block was pinned into position. A secondary check with the extramedullary wilmer confirmed that we appeared to be parallel to the mechanical axis. Thus, the proximal tibial osteotomy was performed. We then placed the lamina liquefaction and regasification helper medially and performed a completion lateral meniscectomy with debridement of posterolateral osteophytes and then placed the lamina liquefaction and regasification helper laterally and performed a completion medial meniscectomy and debridement of posteromedial osteophytes. The spacer block fit very nicely at a 6-mm thickness and very symmetrically to varus valgus stress testing both in flexion and in extension and in extension the 1-mm addition had good stability. Thus, I felt this was the appropriate size component to use. We then flexed the knee, exposed the proximal tibia and sized for a #5 tibial tray, which was pinned into position followed by the reamer and the broach. Then the trial polyethylene was placed; then the trial femoral component placed; brought the knee into extension, everted the patella, and then performed a patella osteotomy and sized for a 35 patellar component. Lug holes drilled, the trial was placed, and the patellofemoral tracking was anatomic. We, thus, drilled the lug holes for the femur and then removed all the trial components, and copiously pulsatile irrigated out the knee as I did several times throughout the operation. At this point, Exparel was placed into the subperiosteal tissues around the distal femur and the proximal tibia as my speech pathology assistant, Ms. Jaqueline Sarmiento, mixed the cement on the back table as I prepared the bony surfaces for cementing with a copious amount of pulsatile lavage irrigant solution and irrigated and dried all the surfaces thoroughly. Ms. Jaqueline Sarmiento was also critical to the success of this difficult surgery by helping to manipulate the knee as needed, help with appropriate soft tissue retraction, help to mix the cement, helped to close the wound, helped to prepare the patient amongst many other tasks to allow me to perform the operation smoothly, efficiency, and safely. Once all the bony surfaces were thoroughly dried, I cemented the tibial tray, removed excess cement and placed the polyethylene; and cemented the femoral component, removed excess cement, and brought the knee into extension, everted the patella and cemented the patellar button, removed excess cement and held it with a clamp with the knee extended as the cement hardened. As we were awaiting this, we irrigated out the knee once again and then placed tranexamic acid, and then began closing apex of the arthrotomy with two #1 PDS sutures. The medial parapatellar area was closed with a #1 PDS suture and thena double-arm running STRATAFIX used to close the capsule and then the tourniquet was released. We irrigated subdermal tissues and closed with interrupted 2-0 PDS sutures. Skin was closed with armand covered by an Optifoam and a dry sterile, bulky dressing. She was then transferred to the recovery room in stable condition. There were no intraoperative complications. GURPREET
[2020-06-26 18:00] VITALS: BP 135/85
[2020-06-26 22:00] VITALS: BP 137/82
[2020-06-27] MEDS: PERCOCET 5MG/325MG TAB PO PRN ×4 (00:46→14:16)
[2020-06-27] MEDS: LEVOTHYROXINE 150MCG TABLET (0.15MG) PO SCH (05:18)
[2020-06-27 06:00] VITALS: BP 114/79
[2020-06-27] MEDS: LR 1,000 ML IV SCH (06:45)
[2020-06-27 07:14] LABS: HEMATOCRIT 33.7 % (36.0-47.0); HEMOGLOBIN 10.7 g/dl (12.0-15.5); MEAN CORPUSCULAR HEMOGLOBIN 28.9 pg (27.0-33.0); MEAN CORPUSCULAR HGB CONC 31.8 g/dl (32.0-36.5); MEAN CORPUSCULAR VOLUME 91.1 fl (80.0-96.0); PLATELET COUNT, AUTOMATED 211 10^3/uL (150-450); WHITE BLOOD COUNT 15.4 10^3/uL (4.0-10.0)
[2020-06-27 07:38] LABS: ALBUMIN 3.2 GM/DL (3.2-5.2); ALT/SGPT 18 U/L (12-78); BILIRUBIN,TOTAL 0.5 MG/DL (0.2-1.0); BLOOD UREA NITROGEN 17 MG/DL (7-18); CALCIUM LEVEL 8.7 MG/DL (8.8-10.2); CARBON DIOXIDE LEVEL 25 MEQ/L (21-32); CHLORIDE LEVEL 108 MEQ/L (98-107); CREATININE FOR GFR 0.72 MG/DL (0.55-1.30); GLOMERULAR FILTRATION RATE > 60.0 (>45); GLUCOSE, FASTING 105 MG/DL (70-100); POTASSIUM SERUM 3.6 MEQ/L (3.5-5.1); SODIUM LEVEL 140 MEQ/L (136-145)
[2020-06-27] MEDS: MIRALAX *UNIT DOSE* 17GM PACKET PO SCH (09:00)
[2020-06-27] MEDS: MOM 30ML SUSPENSION UDC PO SCH (09:00)
[2020-06-27 09:08] VITALS: BP 135/70
[2020-06-27 09:11] VITALS: BP 135/70
[2020-06-27] MEDS: ATORVASTATIN 20 MG TAB PO SCH (09:11)
[2020-06-27] MEDS: VITAMIN D 1,000 INTERNATIONAL UNITS TABLET PO SCH (09:11)
[2020-06-27] MEDS: METOPROLOL SUCC (TopROL XL) 50MG **XL** TAB PO SCH (09:11)
[2020-06-27] MEDS: CelecoXIB (CeleBREX) 100 MG CAP PO SCH (09:11)
[2020-06-27] MEDS: ASPIRIN 81 MG ENTERIC TAB PO SCH (09:11)
[2020-06-27] MEDS: amLODIPine 10 MG TAB PO SCH (09:11)
[2020-06-27 10:00] VITALS: BP 142/69
[2020-06-27] MEDS ORDERED: ECOT81TA5 PO (14:13)
--- NOTE | 2020-06-27 16:46 | IPNPDOC ---
Date Seen The patient was seen on 06/27/20. Progress Note SUBJECTIVE: Patient seen and examined this morning. Currently has no complaints. No adverse events reported overnight. Patient is planned to be discharged today pending PT clearance OBJECTIVE PHYSICAL EXAMINATION: VITAL SIGNS: Please see below. GENERAL: Awake, alert, and oriented. Appears in no acute distress. Lying comfortably in bed. HEENT: Atraumatic normocephalic. Eyes are nonicteric. Trachea is midline CARDIOVASCULAR: Normal S1, S2. Regular rate and rhythm. No clicks, rubs, or mur murs RESPIRATORY: Clear vesicular breath sounds bilaterally. Slightly decreased in the base. No wheezes, rhonchi or rales. ABDOMINAL: Soft, nondistended. Obese. Hypoactive bowel sounds. Nontender. No rebound tenderness or guarding EXTREMITIES: No edema. right knee bandaged. Full and equal pulses bilaterally NEUROLOGICAL: No focal neurological deficits PSYCHOLOGICAL: Mood and affect appear appropriate LABORATORY DATA, IMAGING STUDIES, MICROBIOLOGY: Please see below. DVT prophylaxis ordered?: Mechanical ASSESSMENT AND PLAN: Patient is a 65 year old female with a past medical history significant for osteoarthritis of the knees, hypertension, obesity, hyperlipidemia, and hypothyroidism who is seen for medical consult after a total right knee replacement. PROBLEMS: 1. Osteoarthritis s/p day 2 Total right knee replacement -Patient is day 2 total right knee replacement. Pain control per Orthopedic surgery -Patient planned to be discharged per PT/OT clearance -Patient on Aspirin and TEDS and Sequentials 2. Hypertension -Patient remains normotensive -Will continue home medications 3. Hypothyroidism -Continue home Synthroid 4. Hyperlipidemia -Continue Lipitor DISPOSITION: No acute events overnight. Patient is medically stable. Recommend continued outpatient follow-up for chronic medical conditions after discharge Attending Note: Patient seen and examined independently. Agree with student's note. VS, I&O, 24H, [place]bone Vital Signs/I&O Vital Signs Date Time Temp Pulse Resp B/P (MAP) Pulse Ox O2 Delivery O2 Flow Rate FiO2 06/27/20 14:16 18 Room Air 06/27/20 10:00 98.1 73 142/69 (93) 98 06/25/20 12:00 2 I&O- Last 24 Hours up to 6 AM 06/27/20 05:59 Intake Total 1670 ml Output Total 400 ml Balance 1270 ml Laboratory Data 24H LABS Laboratory Tests 2 06/27/20 06:39: Nucleated Red Blood Cells % (auto) 0.0, Anion Gap 7L, Glomerular Filtration Rate > 60.0, Calcium Level 8.7L, Total Bilirubin 0.5, Aspartate Amino Transf (AST/SGOT) 16, Alanine Aminotransferase (ALT/SGPT) 18, Alkaline Phosphatase 95, Total Protein 7.0, Albumin 3.2, Albumin/Globulin Ratio 0.8L CBC/BMP Laboratory Tests 06/27/20 06:39 SUKHDEV WILL DO Jun 27, 2020 16:46 BEBO JHAVERI MD Jun 27, 2020 18:13
--- NOTE | 2020-06-29 14:01 | DS ---
DATE OF ADMISSION: 06/25/2020 DATE OF DISCHARGE: 06/27/2020 ATTENDING: Angelica Rose M.D. ADMITTING DIAGNOSIS: Osteoarthritis right knee. OTHER DIAGNOSES: Include: * Hypertension. * Solitary pulmonary nodule. * Cardiomegaly. * Gastric reflux disease. * Hypercalcemia. * Vitamin D deficiency. * Hyperlipidemia. * Hypothyroidism. * History of cancer of the uterus. DISCHARGE DIAGNOSIS: Osteoarthritis right knee status post right total knee arthroplasty. HISTORY: This is a 65-year-old female patient with progressively worsening right knee pain and stiffness. She failed to improve with conservative management. She was admitted for an elective knee replacement on the right side. OPERATION PERFORMED: Right total knee arthroplasty. HOSPITAL COURSE: The patient was admitted on the day of surgery and underwent the right total knee arthroplasty which was uneventful. During the post- operative period she did struggle with the requirements of physical therapy due to her comorbid conditions and it was elected to send her to a [facility] facility for rehab. On the day of discharge her pain had improved. She was weightbearing as tolerated on the right lower extremity. She will use aspirin 81 mg twice a day and Juvenal stockings for DVT prophylaxis per the protocol. She will resume her pre-operative medications and diet. She was given instructions to include, but not limited to wound monitoring and activity limitations. She will follow up in our office in 10-14 days for a surgical follow up. Please refer to the medical record for further details. GURPREET
== END 2020-06-27 14:20 | disposition home health service (06) | DRG 470 ==
LOC: M OR 09:01 → M MS5PR 15:10
PROVIDERS: ADMIT Orthopaedic Surgery; ATTEND Orthopaedic Surgery
PROC: 0SRC0J9 Replacement of Right Knee Joint with Synthetic Substitute, Cemented, Open Approach (ICD-10-PCS; principal; 2020-06-25 11:45)
DX: M17.11 Unilateral primary osteoarthritis, right knee (principal); I10 Essential (primary) hypertension; R91.1 Solitary pulmonary nodule; K21.9 Gastro-esophageal reflux disease without esophagitis; E55.9 Vitamin D deficiency, unspecified; E78.5 Hyperlipidemia, unspecified; R74.01 Elevation of levels of liver transaminase levels; E03.9 Hypothyroidism, unspecified; Z85.42 Personal history of malignant neoplasm of other parts of uterus; Z79.899 Other long term (current) drug therapy; Z90.710 Acquired absence of both cervix and uterus; Z88.0 Allergy status to penicillin; Z88.1 Allergy status to other antibiotic agents

== ENCOUNTER → 2021-04-23 | Outpatient (CLI) | payer MEDICARE ==
[~2021-04-23] MED LIST changes: -ACETAMINOPHEN 500 MG TAB PO ONE; +ECOT81TA5 PO; -LR 1,000 ML IV ONE; +PERC5TAB12 PO; -ceFAZolin SOD 2 GM in IV 1 EA IV ONE; -fentaNYL 100 MCG/2 ML INJECTION (J3010) IV ONE; -fentaNYL 100 MCG/2 ML INJECTION (J3010) IV SCH
[2021-04-23 13:01] LABS: FREE T4 1.38 NG/DL (0.76-1.46); THYROID STIMULATING HORMONE 0.688 uIU/ML (0.358-3.740)
== END ==
LOC: M WUC 09:11
PROVIDERS: ATTEND Internal Medicine Endocrinology, Diabetes & Metabolism
DX: R94.6 Abnormal results of thyroid function studies (principal)

== ENCOUNTER → 2021-05-27 | Outpatient (CLI) | payer MEDICARE ==
--- NOTE | 2021-05-27 13:52 | REPMRS ---
Patient History The patient states she had a clinical breast exam in . Patient is postmenopausal and has history of endometrial cancer at age 59. No known family history of cancer. Took unspecified hormones for 12 years. Tomosynthesis is performed. [place] breast density [facility] b[facility] Patient states no breast complaints today. Patient has signed MRS History Sheet. Digital Woman Screen Mammo: May 27, 2021 - Exam #: [id number] Bilateral CC and MLO view(s) were taken. Technologist: Rylee Herring, Technologist Prior study comparison: September 12, 2019, bilateral digital mammo screening bilat, performed at [facility]. July 13, 2018, bilateral digital mammo screening bilat, performed at [facility]. 2016, bilateral screening 3D/tomosynthesis, performed at [facility]. 2015, bilateral screening 3D/tomosynthesis, performed at [facility]. FINDINGS: There are scattered fibroglandular densities. There has been no change in the appearance of the mammogram from the prior studies. There is a mild amount of residual fibroglandular tissue which is fairly symmetric. There is no interval development of dominant mass, architectural distortion, or clustered microcalcification suggestive of malignancy. Assessment: BI-RADS/ACR category 1 mammogram. Negative Mammogram. Recommendation Routine screening mammogram in 1 year (for women over age 40). This mammogram was interpreted with the aid of an FDA-approved computer-aided dectection system. Electronically Signed By: Michael Hood MD 05/27/21 [id number]
== END ==
LOC: M WHC 12:45
PROVIDERS: ATTEND Obstetrics & Gynecology
DX: Z12.31 Encounter for screening mammogram for malignant neoplasm of breast (principal)

== ENCOUNTER → 2021-07-07 | Outpatient (REF) | payer MEDICARE | LOC: M WUC 18:15 | PROVIDERS: ATTEND Physician Assistant | DX: N39.0 Urinary tract infection, site not specified (principal) ==

== ENCOUNTER → 2021-07-17 | Outpatient (CLI) | payer MEDICARE ==
[2021-07-17 11:19] LABS: FREE T4 1.17 NG/DL (0.76-1.46); THYROID STIMULATING HORMONE 1.21 uIU/ML (0.358-3.740)
== END ==
LOC: M WUC 08:25
PROVIDERS: ATTEND Nurse Practitioner Family
DX: R94.6 Abnormal results of thyroid function studies (principal)

== ENCOUNTER → 2021-11-05 | Outpatient (CLI) | payer MEDICARE ==
[2021-11-05 10:47] LABS: HEMOGLOBIN A1c 5.6 %
== END ==
LOC: M WUC 08:11
PROVIDERS: ATTEND Physician Assistant
DX: R73.01 Impaired fasting glucose (principal)

== ENCOUNTER → 2022-09-22 | Outpatient (CLI) | payer MEDICARE, BC | LOC: M WHC 07:07 | PROVIDERS: ATTEND Nurse Practitioner Family | DX: Z12.31 Encounter for screening mammogram for malignant neoplasm of breast (principal) ==

== ENCOUNTER → 2022-09-22 | Outpatient (REF) | payer BC, MEDICARE | LOC: M PLALAB 08:29 | PROVIDERS: ATTEND Nurse Practitioner Family | DX: Z12.4 Encounter for screening for malignant neoplasm of cervix (principal) | CPT/HCPCS: 87624; G0123 ==

== ENCOUNTER → 2022-09-30 | Outpatient (CLI) | payer MEDICARE | LOC: M WUC 15:25 | PROVIDERS: ATTEND Physician Assistant | DX: R06.00 Dyspnea, unspecified (principal); I10 Essential (primary) hypertension ==

== ENCOUNTER → 2023-04-14 | Outpatient (REF) | payer MEDICARE ==
[2023-04-14 19:25] LABS: CALCIUM LEVEL 9.5 MG/DL (8.3-10.6); CREATININE FOR GFR 1.44 MG/DL (0.55-1.30); GLOMERULAR FILTRATION RATE 38.3 (>39); POTASSIUM SERUM 4.2 MMOL/L (3.5-5.1)
== END ==
LOC: M LABDRWAD 18:35
PROVIDERS: ATTEND Internal Medicine Cardiovascular Disease
DX: I10 Essential (primary) hypertension (principal)

== ENCOUNTER → 2023-07-14 | Outpatient (REF) | payer MEDICARE ==
[~2023-07-14] MED LIST changes: +AMLO1TAB24 PO; +BENZ-18 PO; +CELE0.09 PO; +SYNT137T7 PO; +TRIA37.577 PO; +VITA100093 PO
[2023-07-14 15:02] LABS: HEMOGLOBIN 11.3 g/dl (12.0-15.5); MEAN CORPUSCULAR HEMOGLOBIN 29.4 pg (27.0-33.0); MEAN CORPUSCULAR HGB CONC 32.3 g/dl (32.0-36.5); MEAN CORPUSCULAR VOLUME 90.9 fl (80.0-96.0); PLATELET COUNT, AUTOMATED 367 10^3/uL (150-450); RED BLOOD COUNT 3.85 10^6/uL (4.00-5.40); WHITE BLOOD COUNT 22.8 10^3/uL (4.0-10.0)
[2023-07-14 15:32] LABS: BILIRUBIN,TOTAL 0.7 MG/DL (0.3-1.2); CALCIUM LEVEL 9.4 MG/DL (8.3-10.6); CHOLESTEROL RISK RATIO 8.98 (<5); CREATININE FOR GFR 1.7 MG/DL (0.55-1.30); GLOMERULAR FILTRATION RATE 31.6 (>39); HDL CHOLESTEROL 16.7 MG/DL (>40); LDL CHOLESTEROL 82.9 MG/DL (<100); NON-HDL-C 133.3 MG/DL; POTASSIUM SERUM 3.8 MMOL/L (3.5-5.1); TOTAL PROTEIN 7.9 G/DL (5.7-8.2)
[2023-07-14 15:33] LABS: THYROID STIMULATING HORMONE 0.491 uIU/ML (0.55-4.78)
== END ==
LOC: M LABDRWAD 14:25
PROVIDERS: ATTEND Physician Assistant
DX: I10 Essential (primary) hypertension (principal); E78.5 Hyperlipidemia, unspecified; E03.9 Hypothyroidism, unspecified

== ENCOUNTER 2023-07-15 09:07 | Inpatient (IN) | payer MEDICARE ==
[~2023-07-15] VITALS: Ht 162.6 cm; Wt 92.0 kg
[~2023-07-15 09:07] MED LIST changes: -AMLO1TAB24 PO; -BENZ-18 PO; -CELE0.09 PO; -SYNT137T7 PO; -TRIA37.577 PO; -VITA100093 PO
[2023-07-15] MEDS ORDERED: TRIA37.577 PO (09:24)
[2023-07-15 10:37] LABS: BASO # 0.1 10^3/uL (0.0-0.2); BASO % 0.4 % (0.0-1.0); EOS # 0.1 10^3/uL (0.0-0.5); EOS % 0.3 % (0.0-3.0); HEMATOCRIT 34.4 % (36.0-47.0); HEMOGLOBIN 11.4 g/dl (12.0-15.5); LYMPH # 2.3 10^3/uL (1.5-5.0); MEAN CORPUSCULAR HEMOGLOBIN 29.8 pg (27.0-33.0); MEAN CORPUSCULAR HGB CONC 33.1 g/dl (32.0-36.5); MEAN CORPUSCULAR VOLUME 90.1 fl (80.0-96.0); MONO % 7.8 % (2.0-8.0); NEUTROPHILS # 18.3 10^3/uL (1.5-8.5); NEUTROPHILS % 79.8 % (36.0-66.0); PLATELET COUNT, AUTOMATED 391 10^3/uL (150-450); RED BLOOD COUNT 3.82 10^6/uL (4.00-5.40); WHITE BLOOD COUNT 22.9 10^3/uL (4.0-10.0)
[2023-07-15 11:03] LABS: MONO # 1.8 10^3/uL (0.0-0.8)
[2023-07-15 11:03] LABS: BILIRUBIN,DIRECT 0.2 MG/DL (<0.4); BILIRUBIN,TOTAL 0.9 MG/DL (0.3-1.2); CALCIUM LEVEL 9.4 MG/DL (8.3-10.6); CREATININE FOR GFR 1.68 MG/DL (0.55-1.30); GLOMERULAR FILTRATION RATE 32.1 (>39); POTASSIUM SERUM 4.2 MMOL/L (3.5-5.1); TOTAL PROTEIN 8.2 G/DL (5.7-8.2)
[2023-07-15 11:05] LABS: FREE T4 1.56 NG/DL (0.89-1.76)
[2023-07-15] MEDS ORDERED: NS 1,000 ML IV ONE (11:25)
[2023-07-15 12:06] LABS: THYROID STIMULATING HORMONE 0.635 uIU/ML (0.55-4.78)
[2023-07-15] MEDS ORDERED: ISOVUE-370 76% 100ML VIAL As Ordered ONE (13:04)
[2023-07-15] MEDS ORDERED: LevoFLOXacin IV 750 MG in IV 1 EA IV ONE (16:20)
[2023-07-15] MEDS ORDERED: MED REC IN PROGRESS XX SCH (16:45)
[2023-07-15] MEDS ORDERED: SYNT137T7 PO (17:06)
[2023-07-15] MEDS ORDERED: CELE0.09 PO (17:08)
[2023-07-15] MEDS ORDERED: BENZ-18 PO (17:08)
[2023-07-15 17:09] LABS: C REACTIVE PROTEIN QUANTITATIV 28.1 MG/DL (<1.0)
[2023-07-15] MEDS ORDERED: AMLO1TAB24 PO (17:11)
[2023-07-15] MEDS ORDERED: ASPI81TA26 PO (17:14)
[2023-07-15] MEDS ORDERED: VITA100093 PO (17:18)
[2023-07-15] MEDS ORDERED: HOME MED LIST COMPLETE! XX SCH (17:20)
[2023-07-15 17:22] LABS: PROCALCITONIN 0.26 ng/ml
[2023-07-15] MEDS ORDERED: ONDANSETRON 4MG 2ML VIAL IV PRN (18:10)
[2023-07-15] MEDS: NS 1,000 ML IV SCH (18:37)
[2023-07-15 20:05] VITALS: BP 136/68; TEMP 98.6; O2SAT 97
[2023-07-15 23:48] VITALS: BP 124/63; TEMP 98.7; O2SAT 95
[2023-07-16 03:44] VITALS: BP 118/56; TEMP 97.6; O2SAT 98
[2023-07-16] MEDS: NS 1,000 ML IV SCH ×2 (05:44→13:00)
[2023-07-16] MEDS: HEPARIN SOD (PORCINE) 5000UNITS/ML 1ML VIAL/SYRINGE SC SCH ×3 (05:44→22:00)
[2023-07-16] MEDS: LEVOTHYROXINE 137MCG TABLET (0.137MG) PO SCH (05:44)
[2023-07-16 07:45] VITALS: BP 114/57; TEMP 97.9; O2SAT 97
[2023-07-16 08:16] LABS: PROCALCITONIN 0.21 ng/ml
[2023-07-16 08:22] LABS: ALBUMIN 2.3 G/DL (3.2-5.2); ALKALINE PHOSPHATASE 105 U/L (46-116); ALT/SGPT 217 U/L (7.0-40); AST/SGOT 164 U/L (<34); BILIRUBIN,TOTAL 0.7 MG/DL (0.3-1.2); BLOOD UREA NITROGEN 33 MG/DL (9-23); CALCIUM LEVEL 8.6 MG/DL (8.3-10.6); CARBON DIOXIDE LEVEL 26 MMOL/L (20-31); CHLORIDE LEVEL 101 MMOL/L (98-107); CREATININE FOR GFR 1.49 MG/DL (0.55-1.30); GLOMERULAR FILTRATION RATE 36.8 (>39); GLUCOSE, FASTING 115 MG/DL (74-106); MAGNESIUM LEVEL 1.9 MG/DL (1.8-2.4); POTASSIUM SERUM 3.5 MMOL/L (3.5-5.1); SODIUM LEVEL 138 MMOL/L (136-145); TOTAL PROTEIN 6.7 G/DL (5.7-8.2)
[2023-07-16 08:36] LABS: BASO # 0.1 10^3/uL (0.0-0.2); BASO % 0.4 % (0.0-1.0); EOS # 0.2 10^3/uL (0.0-0.5); EOS % 1.1 % (0.0-3.0); HEMOGLOBIN 9.7 g/dl (12.0-15.5); LYMPH # 1.8 10^3/uL (1.5-5.0); LYMPH % 11.6 % (24.0-44.0); MEAN CORPUSCULAR HEMOGLOBIN 29.3 pg (27.0-33.0); MEAN CORPUSCULAR HGB CONC 32.3 g/dl (32.0-36.5); MEAN CORPUSCULAR VOLUME 90.6 fl (80.0-96.0); MONO # 1.1 10^3/uL (0.0-0.8); NEUTROPHILS # 11.8 10^3/uL (1.5-8.5); NEUTROPHILS % 77.6 % (36.0-66.0); PLATELET COUNT, AUTOMATED 312 10^3/uL (150-450); RED BLOOD COUNT 3.31 10^6/uL (4.00-5.40); WHITE BLOOD COUNT 15.2 10^3/uL (4.0-10.0)
[2023-07-16] MEDS: METOPROLOL SUCC (TopROL XL) 50MG **XL** TAB PO SCH (09:00)
[2023-07-16] MEDS: amLODIPine 5 MG TAB PO SCH (09:00)
[2023-07-16 09:11] VITALS: BP 113/59
[2023-07-16 11:45] VITALS: BP 111/57; TEMP 97.8; O2SAT 96
[2023-07-16 12:51] LABS: HEPATITIS C VIRUS ABY INDEX 0.03 INDEX (<0.8)
[2023-07-16 12:52] LABS: HEPATITIS B CORE ANTIBODY IGM NEGATIVE (NEGATIVE)
[2023-07-16 15:23] VITALS: BP 128/60; TEMP 97.9; O2SAT 98
[2023-07-16 20:00] VITALS: BP 123/59; TEMP 98.2; O2SAT 95
[2023-07-17] VITALS: BP 127/59; TEMP 98.4; O2SAT 96
[2023-07-17] MEDS: NS 1,000 ML IV SCH ×2 (01:20→10:00)
[2023-07-17] MEDS ORDERED: BENZONATATE 100MG CAPSULE PO PRN (02:45)
[2023-07-17] MEDS ORDERED: guaiFENesin 200 MG TAB PO PRN (02:45)
[2023-07-17 04:00] VITALS: BP 146/66; TEMP 97.6; O2SAT 97
[2023-07-17] MEDS: HEPARIN SOD (PORCINE) 5000UNITS/ML 1ML VIAL/SYRINGE SC SCH (05:21)
[2023-07-17] MEDS: LEVOTHYROXINE 137MCG TABLET (0.137MG) PO SCH (06:10)
[2023-07-17 08:00] VITALS: BP 124/58; TEMP 96.4; O2SAT 97
[2023-07-17 08:02] LABS: BASO # 0.1 10^3/uL (0.0-0.2); BASO % 0.5 % (0.0-1.0); EOS # 0.3 10^3/uL (0.0-0.5); EOS % 2.2 % (0.0-3.0); HEMATOCRIT 28.4 % (36.0-47.0); HEMOGLOBIN 9.2 g/dl (12.0-15.5); LYMPH % 15.9 % (24.0-44.0); MEAN CORPUSCULAR HEMOGLOBIN 29.8 pg (27.0-33.0); MEAN CORPUSCULAR HGB CONC 32.4 g/dl (32.0-36.5); MEAN CORPUSCULAR VOLUME 91.9 fl (80.0-96.0); MONO # 0.9 10^3/uL (0.0-0.8); MONO % 6.9 % (2.0-8.0); NEUTROPHILS # 8.9 10^3/uL (1.5-8.5); NEUTROPHILS % 70.8 % (36.0-66.0); PLATELET COUNT, AUTOMATED 300 10^3/uL (150-450); RED BLOOD COUNT 3.09 10^6/uL (4.00-5.40); WHITE BLOOD COUNT 12.5 10^3/uL (4.0-10.0)
[2023-07-17 08:33] LABS: ALBUMIN 2.3 G/DL (3.2-5.2); BILIRUBIN,TOTAL 0.5 MG/DL (0.3-1.2); CALCIUM LEVEL 8.5 MG/DL (8.3-10.6); CREATININE FOR GFR 1.16 MG/DL (0.55-1.30); GLOMERULAR FILTRATION RATE 49.2 (>39); POTASSIUM SERUM 3.6 MMOL/L (3.5-5.1); TOTAL PROTEIN 6.3 G/DL (5.7-8.2)
[2023-07-17 09:00] VITALS: BP 124/58
[2023-07-17] MEDS: amLODIPine 5 MG TAB PO SCH (09:00)
[2023-07-17] MEDS: METOPROLOL SUCC (TopROL XL) 50MG **XL** TAB PO SCH (09:00)
[2023-07-17] MEDS ORDERED: PROT1TAB2 PO (09:05)
[2023-07-17] MEDS ORDERED: LEVO1TAB40 PO (09:08)
[2023-07-17 12:00] VITALS: BP 114/64; TEMP 96.4; O2SAT 93
[2023-07-17] MEDS ORDERED: LevoFLOXacin IV 750 MG in IV 1 EA IV ONE (13:00)
== END 2023-07-17 14:14 | disposition home or self-care (01) | DRG 682 ==
LOC: M ED 09:07 → M ED INP 16:45 → M PCU 20:00
PROVIDERS: ADMIT Internal Medicine; ATTEND Internal Medicine
DX: N17.9 Acute kidney failure, unspecified (principal); K72.00 Acute and subacute hepatic failure without coma; I47.19 Other supraventricular tachycardia; I10 Essential (primary) hypertension; E03.9 Hypothyroidism, unspecified; K21.9 Gastro-esophageal reflux disease without esophagitis; E86.0 Dehydration; N12 Tubulo-interstitial nephritis, not specified as acute or chronic; R74.01 Elevation of levels of liver transaminase levels; D72.829 Elevated white blood cell count, unspecified; Z79.82 Long term (current) use of aspirin; Z79.890 Hormone replacement therapy; Z79.899 Other long term (current) drug therapy; Z88.0 Allergy status to penicillin; R16.1 Splenomegaly, not elsewhere classified; R59.0 Localized enlarged lymph nodes; D18.03 Hemangioma of intra-abdominal structures

== ENCOUNTER → 2023-07-22 | Outpatient (REF) | payer MEDICARE ==
[~2023-07-22] MED LIST changes: +AMLO1TAB24 PO; +BENZ-18 PO; +CELE0.09 PO; +LEVO1TAB40 PO; +PROT1TAB2 PO; +SYNT137T7 PO; +TRIA37.577 PO; +VITA100093 PO
[2023-07-22 13:34] LABS: HEMATOCRIT 33.2 % (36.0-47.0); HEMOGLOBIN 10.5 g/dl (12.0-15.5); MEAN CORPUSCULAR HEMOGLOBIN 29.7 pg (27.0-33.0); MEAN CORPUSCULAR HGB CONC 31.6 g/dl (32.0-36.5); MEAN CORPUSCULAR VOLUME 93.8 fl (80.0-96.0); PLATELET COUNT, AUTOMATED 374 10^3/uL (150-450); RED BLOOD COUNT 3.54 10^6/uL (4.00-5.40); WHITE BLOOD COUNT 11.3 10^3/uL (4.0-10.0)
[2023-07-22 13:44] LABS: ALBUMIN 2.8 G/DL (3.2-5.2); ALKALINE PHOSPHATASE 97 U/L (46-116); ALT/SGPT 80 U/L (7.0-40); AST/SGOT 28 U/L (<34); BILIRUBIN,DIRECT < 0.1 MG/DL (<0.4); BILIRUBIN,TOTAL 0.4 MG/DL (0.3-1.2); BLOOD UREA NITROGEN 15 MG/DL (9-23); CALCIUM LEVEL 8.5 MG/DL (8.3-10.6); CARBON DIOXIDE LEVEL 26 MMOL/L (20-31); CHLORIDE LEVEL 109 MMOL/L (98-107); CREATININE FOR GFR 1.05 MG/DL (0.55-1.30); GLOMERULAR FILTRATION RATE 55.2 (>39); GLUCOSE, FASTING 126 MG/DL (74-106); POTASSIUM SERUM 3.7 MMOL/L (3.5-5.1); SODIUM LEVEL 145 MMOL/L (136-145); TOTAL PROTEIN 6.6 G/DL (5.7-8.2)
== END ==
LOC: M LABDRWAD 12:50
PROVIDERS: ATTEND Internal Medicine Cardiovascular Disease
DX: I10 Essential (primary) hypertension (principal); R79.89 Other specified abnormal findings of blood chemistry

== ENCOUNTER 2023-08-19 15:44 | Inpatient (IN) | payer MEDICARE ==
[~2023-08-19] VITALS: Ht 162.6 cm; Wt 95.0 kg
[2023-08-19 17:12] LABS: BASO # 0.1 10^3/uL (0.0-0.2); BASO % 0.8 % (0.0-1.0); EOS # 0.4 10^3/uL (0.0-0.5); EOS % 3.8 % (0.0-3.0); HEMATOCRIT 37.1 % (36.0-47.0); HEMOGLOBIN 12.2 g/dl (12.0-15.5); LYMPH # 2.3 10^3/uL (1.5-5.0); LYMPH % 22.5 % (24.0-44.0); MEAN CORPUSCULAR HEMOGLOBIN 30.3 pg (27.0-33.0); MEAN CORPUSCULAR HGB CONC 32.9 g/dl (32.0-36.5); MEAN CORPUSCULAR VOLUME 92.3 fl (80.0-96.0); MONO # 0.9 10^3/uL (0.0-0.8); MONO % 8.4 % (2.0-8.0); NEUTROPHILS # 6.7 10^3/uL (1.5-8.5); PLATELET COUNT, AUTOMATED 217 10^3/uL (150-450); RED BLOOD COUNT 4.02 10^6/uL (4.00-5.40); WHITE BLOOD COUNT 10.4 10^3/uL (4.0-10.0)
[2023-08-19 17:28] LABS: BLOOD UREA NITROGEN 19 MG/DL (9-23); CALCIUM LEVEL 8.9 MG/DL (8.3-10.6); CARBON DIOXIDE LEVEL 25 MMOL/L (20-31); CHLORIDE LEVEL 109 MMOL/L (98-107); CREATININE FOR GFR 0.95 MG/DL (0.55-1.30); GLOMERULAR FILTRATION RATE > 60.0 (>39); GLUCOSE, FASTING 94 MG/DL (74-106); POTASSIUM SERUM 3.9 MMOL/L (3.5-5.1); SODIUM LEVEL 142 MMOL/L (136-145)
[2023-08-19] MEDS ORDERED: ISOVUE-370 76% 100ML VIAL As Ordered ONE (17:35)
[2023-08-19] MEDS ORDERED: HOME MED LIST COMPLETE! XX SCH (20:00)
[2023-08-19] MEDS: ATORVASTATIN 20 MG TAB PO SCH (21:00)
[2023-08-19] MEDS ORDERED: GLUCOSE 4GM CHEW TABLET PO PRN (21:05)
[2023-08-19] MEDS ORDERED: GLUCAGON INJ 1MG VIAL SC PRN (21:05)
[2023-08-19] MEDS ORDERED: DEXTROSE 50% 50ML SYRINGE IV PRN (21:05)
[2023-08-20] VITALS (19 sets, daily range): BP systolic 124–158; BP diastolic 70–84; TEMP 97.3–98.5; O2SAT 91–99
[2023-08-20 05:38] LABS: BASO # 0.1 10^3/uL (0.0-0.2); BASO % 0.9 % (0.0-1.0); EOS # 0.4 10^3/uL (0.0-0.5); EOS % 4.3 % (0.0-3.0); HEMATOCRIT 36.1 % (36.0-47.0); LYMPH % 23.7 % (24.0-44.0); MEAN CORPUSCULAR HEMOGLOBIN 30.2 pg (27.0-33.0); MEAN CORPUSCULAR HGB CONC 33.2 g/dl (32.0-36.5); MEAN CORPUSCULAR VOLUME 90.7 fl (80.0-96.0); MONO # 0.6 10^3/uL (0.0-0.8); MONO % 7.5 % (2.0-8.0); NEUTROPHILS # 5.4 10^3/uL (1.5-8.5); NEUTROPHILS % 63.1 % (36.0-66.0); PLATELET COUNT, AUTOMATED 214 10^3/uL (150-450); RED BLOOD COUNT 3.98 10^6/uL (4.00-5.40); WHITE BLOOD COUNT 8.5 10^3/uL (4.0-10.0)
[2023-08-20] MEDS: LEVOTHYROXINE 137MCG TABLET (0.137MG) PO SCH (05:45)
[2023-08-20 05:46] LABS: ERYTHROCYTE SEDIMENTATION RATE 41 mm/hr (0-30)
[2023-08-20] MEDS: HEPARIN SOD (PORCINE) 5000UNITS/ML 1ML VIAL/SYRINGE SQ SCH ×3 (05:47→21:05)
[2023-08-20 06:09] LABS: C REACTIVE PROTEIN QUANTITATIV < 0.40 MG/DL (<1.0)
[2023-08-20 06:11] LABS: BLOOD UREA NITROGEN 14 MG/DL (9-23); CALCIUM LEVEL 9.2 MG/DL (8.3-10.6); CARBON DIOXIDE LEVEL 24 MMOL/L (20-31); CHLORIDE LEVEL 107 MMOL/L (98-107); CREATININE FOR GFR 0.77 MG/DL (0.55-1.30); GLOMERULAR FILTRATION RATE > 60.0 (>39); GLUCOSE, FASTING 103 MG/DL (74-106); MAGNESIUM LEVEL 2.1 MG/DL (1.8-2.4); POTASSIUM SERUM 3.9 MMOL/L (3.5-5.1); SODIUM LEVEL 140 MMOL/L (136-145)
[2023-08-20] MEDS: ASPIRIN 81MG CHEW TABLET PO SCH (08:25)
[2023-08-20] MEDS: METOPROLOL SUCC (TopROL XL) 50MG **XL** TAB PO SCH (08:26)
[2023-08-20] MEDS: amLODIPine 5 MG TAB PO SCH (08:26)
[2023-08-20] MEDS ORDERED: PROHANCE 279.3MG/ML 5ML VIAL As Ordered ONE (12:41)
[2023-08-20] MEDS ORDERED: PROHANCE 279.3MG/ML 15ML VIAL As Ordered ONE (12:41)
[2023-08-20] MEDS: ATORVASTATIN 20 MG TAB PO SCH (21:05)
[2023-08-21] VITALS (17 sets, daily range): BP systolic 132–148; BP diastolic 65–96; TEMP 97.8–98.2; O2SAT 92–98
[2023-08-21 05:38] LABS: BASO # 0.1 10^3/uL (0.0-0.2); BASO % 1.1 % (0.0-1.0); EOS # 0.5 10^3/uL (0.0-0.5); EOS % 6.5 % (0.0-3.0); HEMATOCRIT 38.3 % (36.0-47.0); HEMOGLOBIN 12.4 g/dl (12.0-15.5); LYMPH # 2.5 10^3/uL (1.5-5.0); LYMPH % 31.1 % (24.0-44.0); MEAN CORPUSCULAR HEMOGLOBIN 29.7 pg (27.0-33.0); MEAN CORPUSCULAR HGB CONC 32.4 g/dl (32.0-36.5); MEAN CORPUSCULAR VOLUME 91.6 fl (80.0-96.0); MONO # 0.6 10^3/uL (0.0-0.8); MONO % 7.2 % (2.0-8.0); NEUTROPHILS # 4.4 10^3/uL (1.5-8.5); NEUTROPHILS % 53.9 % (36.0-66.0); PLATELET COUNT, AUTOMATED 200 10^3/uL (150-450); RED BLOOD COUNT 4.18 10^6/uL (4.00-5.40); WHITE BLOOD COUNT 8.1 10^3/uL (4.0-10.0)
[2023-08-21 05:49] LABS: BLOOD UREA NITROGEN 15 MG/DL (9-23); CARBON DIOXIDE LEVEL 25 MMOL/L (20-31); CHLORIDE LEVEL 109 MMOL/L (98-107); CREATININE FOR GFR 0.82 MG/DL (0.55-1.30); GLOMERULAR FILTRATION RATE > 60.0 (>39); GLUCOSE, FASTING 99 MG/DL (74-106); POTASSIUM SERUM 4.4 MMOL/L (3.5-5.1); SODIUM LEVEL 141 MMOL/L (136-145)
[2023-08-21] MEDS: HEPARIN SOD (PORCINE) 5000UNITS/ML 1ML VIAL/SYRINGE SQ SCH (05:51)
[2023-08-21] MEDS: LEVOTHYROXINE 137MCG TABLET (0.137MG) PO SCH (05:52)
[2023-08-21] MEDS ORDERED: CLOPIDOGREL 75 MG TAB PO SCH (09:00)
[2023-08-21] MEDS: ASPIRIN 81MG CHEW TABLET PO SCH (09:38)
[2023-08-21] MEDS: amLODIPine 5 MG TAB PO SCH (09:38)
[2023-08-21] MEDS: METOPROLOL SUCC (TopROL XL) 50MG **XL** TAB PO SCH (09:38)
[2023-08-21] MEDS ORDERED: ATOR40TA75 PO (10:57)
[2023-08-21] MEDS ORDERED: CLOP75TA99 PO (10:57)
== END 2023-08-21 13:55 | disposition home or self-care (01) | DRG 123 ==
LOC: M ED 15:44 → M ED INP 22:25 → M PCU 08-20 04:03
PROVIDERS: ADMIT Family Medicine; ATTEND Family Medicine
PROC: B246ZZZ Ultrasonography of Right and Left Heart (ICD-10-PCS; principal; 2023-08-21)
DX: H46.8 Other optic neuritis (principal); I50.32 Chronic diastolic (congestive) heart failure; I11.0 Hypertensive heart disease with heart failure; E03.9 Hypothyroidism, unspecified; M19.90 Unspecified osteoarthritis, unspecified site; E78.5 Hyperlipidemia, unspecified; K21.9 Gastro-esophageal reflux disease without esophagitis; Z85.42 Personal history of malignant neoplasm of other parts of uterus; Z90.49 Acquired absence of other specified parts of digestive tract; Z96.651 Presence of right artificial knee joint; Z66 Do not resuscitate; Z79.82 Long term (current) use of aspirin; Z79.890 Hormone replacement therapy; Z79.899 Other long term (current) drug therapy; Z88.0 Allergy status to penicillin; Z20.822 Contact with and (suspected) exposure to COVID-19; Z90.79 Acquired absence of other genital organ(s)

== ENCOUNTER → 2023-09-16 | Outpatient (CLI) | payer MEDICARE ==
[~2023-09-16] MED LIST changes: +ATOR40TA75 PO; +CLOP75TA99 PO; +PANT40TA29
[2023-09-17 09:38] LABS: DRVV SCREEN 39.4 SECONDS
== END ==
LOC: M LAB 12:01
PROVIDERS: ATTEND Psychiatry & Neurology Neurology
DX: L95.9 Vasculitis limited to the skin, unspecified (principal)

== ENCOUNTER → 2023-09-21 | Outpatient (CLI) | payer MEDICARE ==
[~2023-09-21] MED LIST changes: +PROHANCE 279.3MG/ML 15ML VIAL As Ordered ONE; +PROHANCE 279.3MG/ML 5ML VIAL As Ordered ONE
== END ==
LOC: M RAD 08:37
PROVIDERS: ATTEND Ophthalmology
DX: H47.10 Unspecified papilledema (principal)
CPT/HCPCS: 70543; A9576

== ENCOUNTER → 2023-10-19 | Outpatient (CLI) | payer MEDICARE ==
[~2023-10-19] MED LIST changes: +ISOVUE-370 76% 100ML VIAL As Ordered ONE; -PROHANCE 279.3MG/ML 15ML VIAL As Ordered ONE; -PROHANCE 279.3MG/ML 5ML VIAL As Ordered ONE
== END ==
LOC: M RAD 14:54
PROVIDERS: ATTEND Internal Medicine Nephrology
DX: D41.00 Neoplasm of uncertain behavior of unspecified kidney (principal)
CPT/HCPCS: 74177; Q9967

== ENCOUNTER → 2024-02-16 | Outpatient (REF) | payer MEDICARE ==
[~2024-02-16] MED LIST changes: -ISOVUE-370 76% 100ML VIAL As Ordered ONE; +ONDA-282 PO; -ONDA4TAB6 PO
[2024-02-16 15:36] LABS: HEMATOCRIT 42.8 % (36.0-47.0); HEMOGLOBIN 13.6 g/dl (12.0-15.5); MEAN CORPUSCULAR HEMOGLOBIN 29.9 pg (27.0-33.0); MEAN CORPUSCULAR HGB CONC 31.8 g/dl (32.0-36.5); MEAN CORPUSCULAR VOLUME 94.1 fl (80.0-96.0); PLATELET COUNT, AUTOMATED 220 10^3/uL (150-450); RED BLOOD COUNT 4.55 10^6/uL (4.00-5.40); WHITE BLOOD COUNT 12.3 10^3/uL (4.0-10.0)
[2024-02-16 16:04] LABS: ALBUMIN 3.8 G/DL (3.2-5.2); ALKALINE PHOSPHATASE 133 U/L (46-116); ALT/SGPT 26 U/L (7.0-40); AST/SGOT 12 U/L (<34); BILIRUBIN,TOTAL 0.7 MG/DL (0.3-1.2); BLOOD UREA NITROGEN 16 MG/DL (9-23); CALCIUM LEVEL 9.3 MG/DL (8.3-10.6); CARBON DIOXIDE LEVEL 28 MMOL/L (20-31); CHLORIDE LEVEL 105 MMOL/L (98-107); CHOLESTEROL LEVEL 169 MG/DL (<200); CHOLESTEROL RISK RATIO 3.84 (<5); CREATININE FOR GFR 0.93 MG/DL (0.55-1.30); GLOMERULAR FILTRATION RATE > 60.0 (>39); GLUCOSE, FASTING 94 MG/DL (74-106); HDL CHOLESTEROL 43.9 MG/DL (>40); LDL CHOLESTEROL 86.9 MG/DL (<100); NON-HDL-C 125.1 MG/DL; POTASSIUM SERUM 4.3 MMOL/L (3.5-5.1); SODIUM LEVEL 140 MMOL/L (136-145); TOTAL PROTEIN 6.9 G/DL (5.7-8.2); TRIGLYCERIDES LEVEL 191 MG/DL (<150)
== END ==
LOC: M LABDRWAD 13:07
PROVIDERS: ATTEND Physician Assistant
DX: E78.5 Hyperlipidemia, unspecified (principal); N17.9 Acute kidney failure, unspecified

== ENCOUNTER 2024-03-08 13:33 | Emergency (ER) | payer MEDICARE ==
[~2024-03-08] VITALS: Ht 162.6 cm; Wt 99.9 kg
[~2024-03-08 13:33] MED LIST changes: -CIPR250T26 PO
[2024-03-08] MEDS ORDERED: MORPHINE 4 MG/ML 1ML VIAL IV PRN (14:05)
[2024-03-08] MEDS ORDERED: KETOROLAC 30 MG/ML 1ML VIAL As Ordered ONE (14:09)
[2024-03-08] MEDS: ONDANSETRON 4MG 2ML VIAL IV ONE (14:12)
[2024-03-08] MEDS: KETOROLAC 30 MG/ML 1ML VIAL IV ONE (14:12)
[2024-03-08 14:17] LABS: BASO # 0.1 10^3/uL (0.0-0.2); BASO % 0.5 % (0.0-1.0); EOS # 0.2 10^3/uL (0.0-0.5); EOS % 1.5 % (0.0-3.0); HEMATOCRIT 41.4 % (36.0-47.0); HEMOGLOBIN 14.9 g/dl (12.0-15.5); LYMPH % 13.5 % (24.0-44.0); MEAN CORPUSCULAR HEMOGLOBIN 32.6 pg (27.0-33.0); MEAN CORPUSCULAR VOLUME 90.6 fl (80.0-96.0); MONO % 6.9 % (2.0-8.0); NEUTROPHILS # 11.4 10^3/uL (1.5-8.5); PLATELET COUNT, AUTOMATED 239 10^3/uL (150-450); RED BLOOD COUNT 4.57 10^6/uL (4.00-5.40); WHITE BLOOD COUNT 14.9 10^3/uL (4.0-10.0)
[2024-03-08 14:46] LABS: ALBUMIN 4.3 G/DL (3.2-5.2); BILIRUBIN,TOTAL 0.7 MG/DL (0.3-1.2); CALCIUM LEVEL 9.9 MG/DL (8.3-10.6); CREATININE FOR GFR 1.35 MG/DL (0.55-1.30); GLOMERULAR FILTRATION RATE 41.2 (>39); TOTAL PROTEIN 7.6 G/DL (5.7-8.2)
[2024-03-08] MEDS ORDERED: PERC5TAB12 PO (16:00)
[2024-03-08] MEDS ORDERED: FLOM0.4C39 PO (16:00)
[2024-03-08] MEDS ORDERED: CIPR250T26 PO (17:26)
[2024-03-08 17:33] VITALS: BP 145/65; TEMP 97.5; O2SAT 96
== END 2024-03-08 17:47 | disposition home or self-care (01) ==
LOC: M ED 13:33
DX: N20.1 Calculus of ureter (principal); I10 Essential (primary) hypertension; E03.9 Hypothyroidism, unspecified; Z85.42 Personal history of malignant neoplasm of other parts of uterus; Z88.0 Allergy status to penicillin; Z79.1 Long term (current) use of non-steroidal anti-inflammatories (NSAID); Z79.899 Other long term (current) drug therapy
CPT/HCPCS: 74176; 80053; 81000; 81015; 83690; 85025; 87086; 96374; 99284; J1885; J2405

== ENCOUNTER → 2024-03-08 | Outpatient (REF) | payer MEDICARE ==
[~2024-03-08] MED LIST changes: +CIPR250T26 PO
== END ==
LOC: M LAB REF 10:43
PROVIDERS: ATTEND Nurse Practitioner Family
DX: R30.0 Dysuria (principal)

== ENCOUNTER → 2024-06-07 | Outpatient (REF) | payer MEDICARE, BC ==
[~2024-06-07] MED LIST changes: +CIPR250T26 PO
[2024-06-09 16:22] LABS: HPV APTIMA Not Detected (Not Detected)
== END ==
LOC: M SFHCWAGY 17:59
PROVIDERS: ATTEND Nurse Practitioner Family
DX: Z12.72 Encounter for screening for malignant neoplasm of vagina (principal); N95.2 Postmenopausal atrophic vaginitis
CPT/HCPCS: 87624; G0123

== ENCOUNTER → 2024-06-07 | Outpatient (CLI) | payer MEDICARE | LOC: M WHC 14:07 | PROVIDERS: ATTEND Nurse Practitioner Family | DX: Z12.31 Encounter for screening mammogram for malignant neoplasm of breast (principal); R92.313 Mammographic fatty tissue density, bilateral breasts ==

== ENCOUNTER → 2024-10-10 | Outpatient (CLI) | payer MEDICARE ==
[~2024-10-10] MED LIST changes: +CELE0.09
[2024-10-10 08:53] LABS: HEMATOCRIT 39.9 % (36.0-47.0); HEMOGLOBIN 13.1 g/dl (12.0-15.5); MEAN CORPUSCULAR HEMOGLOBIN 29.9 pg (27.0-33.0); MEAN CORPUSCULAR HGB CONC 32.8 g/dl (32.0-36.5); MEAN CORPUSCULAR VOLUME 91.1 fl (80.0-96.0); PLATELET COUNT, AUTOMATED 243 10^3/uL (150-450); RED BLOOD COUNT 4.38 10^6/uL (4.00-5.40); WHITE BLOOD COUNT 11.8 10^3/uL (4.0-10.0)
[2024-10-10 08:59] LABS: ERYTHROCYTE SEDIMENTATION RATE 38 mm/hr (0-30)
[2024-10-10 09:21] LABS: ALBUMIN 3.8 G/DL (3.2-5.2); ALKALINE PHOSPHATASE 115 U/L (35-104); ALT/SGPT 19 U/L (7.0-40); AST/SGOT 15 U/L (<34); BILIRUBIN,TOTAL 0.5 MG/DL (0.3-1.2); BLOOD UREA NITROGEN 17 MG/DL (9-23); CALCIUM LEVEL 9.4 MG/DL (8.3-10.6); CARBON DIOXIDE LEVEL 26 MMOL/L (20-31); CHLORIDE LEVEL 108 MMOL/L (98-107); GLOMERULAR FILTRATION RATE > 60.0 (>39); GLUCOSE, FASTING 91 MG/DL (74-106); POTASSIUM SERUM 4.3 MMOL/L (3.5-5.1); SODIUM LEVEL 145 MMOL/L (136-145); TOTAL PROTEIN 7.6 G/DL (5.7-8.2)
[2024-10-10 09:23] LABS: INR 0.94; PROTHROMBIN TIME 12.9 SECONDS (12.5-14.5)
== END ==
LOC: M RAD 07:56
PROVIDERS: ATTEND Orthopaedic Surgery
DX: Z01.818 Encounter for other preprocedural examination (principal); M17.12 Unilateral primary osteoarthritis, left knee; Z79.01 Long term (current) use of anticoagulants

== ENCOUNTER 2024-10-29 16:40 | Emergency (ER) | payer MEDICARE ==
[~2024-10-29] VITALS: Ht 162.6 cm; Wt 100.0 kg
[~2024-10-29 16:40] MED LIST changes: +ASPI-1 PO; +ELIQ2.5T PO
[2024-10-29] MEDS ORDERED: HYDR-3713 (16:56)
[2024-10-29] MEDS: LIDOCAINE 2% 5ML JELLY UROJET TOP ONE (17:50)
[2024-10-29 17:59] LABS: KETONE, URINE AUTO RFX NEGATIVE (NEGATIVE); LEUKOCYTE ESTERASE UR AUTO RFX TRACE (NEGATIVE); MUCUS, URINE RFX SMALL (NEGATIVE); NITRITE, URINE AUTO RFX NEGATIVE (NEGATIVE); RBC, URINE AUTO RFX TNTC /HPF (0-3); SQUAM EPITHELIAL CELL UR AURFX 2 /HPF (0-6); TRANSITIONAL EPITHELIAL AU RFX <1 /HPF; WBC, URINE AUTO RFX 12 /HPF (0-3); YEAST LIKE CELL URINE AUTO RFX SMALL
[2024-10-29 18:07] LABS: BASO # 0.1 10^3/uL (0.0-0.2); BASO % 0.4 % (0.0-1.0); EOS # 0.1 10^3/uL (0.0-0.5); EOS % 0.3 % (0.0-3.0); HEMOGLOBIN 12.9 g/dl (12.0-15.5); LYMPH # 2.6 10^3/uL (1.5-5.0); LYMPH % 14.6 % (24.0-44.0); MEAN CORPUSCULAR HEMOGLOBIN 30.6 pg (27.0-33.0); MEAN CORPUSCULAR HGB CONC 33.9 g/dl (32.0-36.5); MEAN CORPUSCULAR VOLUME 90.3 fl (80.0-96.0); MONO # 1.5 10^3/uL (0.0-0.8); MONO % 8.5 % (2.0-8.0); NEUTROPHILS # 13.7 10^3/uL (1.5-8.5); NEUTROPHILS % 75.8 % (36.0-66.0); PLATELET COUNT, AUTOMATED 232 10^3/uL (150-450); RED BLOOD COUNT 4.21 10^6/uL (4.00-5.40); WHITE BLOOD COUNT 18.1 10^3/uL (4.0-10.0)
[2024-10-29 18:13] LABS: PARTIAL THROMBOPLASTIN TIME 26.1 SECONDS (24.8-34.2); PROTHROMBIN TIME 13.5 SECONDS (12.5-14.5)
[2024-10-29 18:20] LABS: ALBUMIN 3.8 G/DL (3.2-5.2); ALKALINE PHOSPHATASE 113 U/L (35-104); ALT/SGPT 16 U/L (7.0-40); AMYLASE 53 U/L (30-118); AST/SGOT 20 U/L (<34); BILIRUBIN,DIRECT 0.2 MG/DL (<0.4); BILIRUBIN,TOTAL 0.7 MG/DL (0.3-1.2); BLOOD UREA NITROGEN 14 MG/DL (9-23); C REACTIVE PROTEIN QUANTITATIV 8.47 MG/DL (<1.0); CALCIUM LEVEL 9.4 MG/DL (8.3-10.6); CARBON DIOXIDE LEVEL 24 MMOL/L (20-31); CHLORIDE LEVEL 105 MMOL/L (98-107); CREATININE FOR GFR 0.91 MG/DL (0.55-1.30); GLOMERULAR FILTRATION RATE > 60.0 (>39); GLUCOSE, FASTING 126 MG/DL (74-106); POTASSIUM SERUM 3.9 MMOL/L (3.5-5.1); SODIUM LEVEL 142 MMOL/L (136-145); TOTAL PROTEIN 7.6 G/DL (5.7-8.2)
[2024-10-29] MEDS: NS (Normal Saline) 0.9% 1,000 ML IV ONE (18:39)
[2024-10-29] MEDS: cefTRIAXone SOD 2 GM in DEXTROSE 5% (D5W) ADV/MINI-BAG 50 ML IV ONE (18:40)
[2024-10-29] MEDS ORDERED: ISOVUE-370 76% 100ML VIAL As Ordered ONE (18:48)
[2024-10-29 18:49] LABS: APPEARANCE, URINE CLEAR (CLEAR); BACTERIA, URINE AUTO NEGATIVE (NEGATIVE); BILIRUBIN, URINE AUTO NEGATIVE (NEGATIVE); BLOOD, URINE BLOOD 3+ (NEGATIVE); COLOR, URINE YELLOW (YELLOW); GLUCOSE, URINE (UA) AUTO NEGATIVE (NEGATIVE); KETONE, URINE AUTO NEGATIVE (NEGATIVE); LEUKOCYTE ESTERASE, URINE AUTO NEGATIVE (NEGATIVE); MUCUS, URINE SMALL (NEGATIVE); NITRITE, URINE AUTO NEGATIVE (NEGATIVE); PROTEIN, URINE AUTO 1+ mg/dL (NEGATIVE); RBC, URINE AUTO 29 /HPF (0-3); SPECIFIC GRAVITY URINE AUTO 1.015 (1.002-1.035); SQUAMOUS EPITHELIAL CELL UR AU 1 /HPF (0-6); UROBILINOGEN, URINE AUTO 0.2 mg/dL (0.0-2.0); WBC, URINE AUTO 0 /HPF (0-3)
[2024-10-29] MEDS: NORCO, ANEXSIA 5/325MG TABLET (HYDROcodone/ACETAMINOPHEN) PO ONE (19:42)
[2024-10-29] MEDS ORDERED: FLOM0.4C39 PO (20:38)
[2024-10-29] MEDS ORDERED: CEFD1CAP9 PO (20:38)
[2024-10-29 20:45] VITALS: BP 156/74
[2024-10-29 20:46] VITALS: TEMP 99.3
[2024-10-29] MEDS: TAMSULOSIN 0.4 MG CAP PO ONE (20:52)
[2024-10-29 21:15] VITALS: O2SAT 83
== END 2024-10-29 21:20 | disposition home or self-care (01) ==
LOC: M ED 16:40
DX: N13.2 Hydronephrosis with renal and ureteral calculous obstruction (principal); M43.17 Spondylolisthesis, lumbosacral region; K44.9 Diaphragmatic hernia without obstruction or gangrene; I10 Essential (primary) hypertension; Z88.0 Allergy status to penicillin; Z87.442 Personal history of urinary calculi; Z98.890 Other specified postprocedural states; Z79.01 Long term (current) use of anticoagulants; Z79.899 Other long term (current) drug therapy
CPT/HCPCS: 51701; 71045; 74178; 80048; 80076; 81001; 82150; 83605; 84145; 85025; 85610; 85730; 86140; 86850; 86900; 86901; 87040; 87086; 93041; 94760; 96374; 99285; J0696; Q9967

== ENCOUNTER → 2025-03-01 | Outpatient (REF) | payer MEDICARE ==
[~2025-03-01] MED LIST changes: +CEFD1CAP9 PO; -FLOM0.4C39 PO; +HYDR-3713; +TAMS-18 PO
[2025-03-01 14:06] LABS: APPEARANCE, URINE CLEAR (CLEAR); BACTERIA, URINE AUTO NEGATIVE (NEGATIVE); BILIRUBIN, URINE AUTO NEGATIVE (NEGATIVE); BLOOD, URINE BLOOD NEGATIVE (NEGATIVE); GLUCOSE, URINE (UA) AUTO NEGATIVE (NEGATIVE); KETONE, URINE AUTO NEGATIVE (NEGATIVE); LEUKOCYTE ESTERASE, URINE AUTO NEGATIVE (NEGATIVE); MUCUS, URINE SMALL (NEGATIVE); NITRITE, URINE AUTO NEGATIVE (NEGATIVE); PROTEIN, URINE AUTO 1+ mg/dL (NEGATIVE); RBC, URINE AUTO 0 /HPF (0-3); SPECIFIC GRAVITY URINE AUTO 1.021 (1.002-1.035); SQUAMOUS EPITHELIAL CELL UR AU 1 /HPF (0-6); UROBILINOGEN, URINE AUTO 0.2 mg/dL (0.0-2.0); WBC, URINE AUTO 0 /HPF (0-3)
== END ==
LOC: M SMT 12:52
PROVIDERS: ATTEND Physician Assistant
DX: Z87.448 Personal history of other diseases of urinary system (principal)

== ENCOUNTER → 2025-03-14 | Outpatient (REF) | payer MEDICARE | LOC: M SFHCADAM 14:20 | PROVIDERS: ATTEND Physician Assistant | DX: Z09 Encounter for follow-up examination after completed treatment for conditions other than malignant neoplasm (principal); Z87.442 Personal history of urinary calculi ==

== ENCOUNTER → 2025-03-14 | Outpatient (REF) | payer MEDICARE ==
[2025-03-14 18:57] LABS: CHOLESTEROL LEVEL 152.0 MG/DL (<200); CHOLESTEROL RISK RATIO 3.36 (<5); LDL CHOLESTEROL 62.8 MG/DL (<100); NON-HDL-C 106.8 MG/DL; TRIGLYCERIDES LEVEL 220.0 MG/DL (<150)
== END ==
LOC: M LABDRWAD 17:37
PROVIDERS: ATTEND Physician Assistant
DX: I10 Essential (primary) hypertension (principal); E78.2 Mixed hyperlipidemia

== ENCOUNTER → 2025-03-15 | Outpatient (CLI) | payer MEDICARE | LOC: M PLAIMG 12:34 | PROVIDERS: ATTEND Physician Assistant | DX: R31.0 Gross hematuria (principal); K44.9 Diaphragmatic hernia without obstruction or gangrene; N20.0 Calculus of kidney; K57.90 Diverticulosis of intestine, part unspecified, without perforation or abscess without bleeding; M43.16 Spondylolisthesis, lumbar region ==

== ENCOUNTER 2025-07-31 02:22 | Emergency (ER) | payer MEDICARE ==
[~2025-07-31] VITALS: Ht 165.1 cm; Wt 100.3 kg
[2025-07-31 02:46] LABS: URINE PREG TEST NEGATIVE (NEGATIVE)
[2025-07-31 02:52] LABS: KETONE, URINE AUTO RFX NEGATIVE (NEGATIVE); LEUKOCYTE ESTERASE UR AUTO RFX NEGATIVE (NEGATIVE); MUCUS, URINE RFX SMALL (NEGATIVE); NITRITE, URINE AUTO RFX NEGATIVE (NEGATIVE); RBC, URINE AUTO RFX 39 /HPF (0-3); SQUAM EPITHELIAL CELL UR AURFX 1 /HPF (0-6); WBC, URINE AUTO RFX 4 /HPF (0-3)
[2025-07-31 04:22] LABS: BASO # 0.0 10^3/uL (0.0-0.2); BASO % 0.3 % (0.0-1.0); EOS # 0.0 10^3/uL (0.0-0.5); EOS % 0.1 % (0.0-3.0); LYMPH # 1.8 10^3/uL (1.5-5.0); LYMPH % 12.2 % (24.0-44.0); MONO # 0.6 10^3/uL (0.0-0.8); MONO % 3.9 % (2.0-8.0); NEUTROPHILS # 12.2 10^3/uL (1.5-8.5); NEUTROPHILS % 83.2 % (36.0-66.0); PLATELET COUNT, AUTOMATED 223 10^3/uL (150-450)
[2025-07-31 04:36] LABS: ALT/SGPT 23 U/L (7.0-40); AST/SGOT 25 U/L (<34); CALCIUM LEVEL 9.5 MG/DL (8.3-10.6); CARBON DIOXIDE LEVEL 22 MMOL/L (20-31); CHLORIDE LEVEL 109 MMOL/L (98-107); CREATININE FOR GFR 1.33 MG/DL (0.55-1.30); GLOMERULAR FILTRATION RATE 42.5 (>39); POTASSIUM SERUM 4.6 MMOL/L (3.5-5.1); SODIUM LEVEL 142 MMOL/L (136-145)
[2025-07-31] MEDS ORDERED: ISOVUE-370 76% 100 ML VIAL As Ordered ONE (05:42)
[2025-07-31] MEDS: KETOROLAC 30 MG/ML 1 ML VIAL IV ONE (05:57)
[2025-07-31] MEDS: ONDANSETRON 4MG/2ML VIAL IV ONE (06:09)
[2025-07-31] MEDS: NS (Normal Saline) 0.9% 1,000 ML IV ONE (07:15)
[2025-07-31] MEDS ORDERED: OXYC1TAB23 PO (08:13)
[2025-07-31] MEDS ORDERED: ONDA-282 PO (08:14)
[2025-07-31] MEDS ORDERED: TAMS1CAP17 PO (08:15)
[2025-07-31 08:21] VITALS: BP 165/72; TEMP 96.7; O2SAT 96
== END 2025-07-31 08:33 | disposition home or self-care (01) ==
LOC: M ED 02:22
DX: N13.2 Hydronephrosis with renal and ureteral calculous obstruction (principal); I50.22 Chronic systolic (congestive) heart failure; I11.0 Hypertensive heart disease with heart failure; Z86.73 Personal history of transient ischemic attack (TIA), and cerebral infarction without residual deficits; Z88.0 Allergy status to penicillin; Z79.1 Long term (current) use of non-steroidal anti-inflammatories (NSAID); Z79.01 Long term (current) use of anticoagulants; Z79.899 Other long term (current) drug therapy
CPT/HCPCS: 74177; 80048; 80076; 81001; 83690; 84703; 85025; 96361; 96374; 96375; 99284; J1885; J2405; Q9967

== ENCOUNTER 2025-08-02 13:35 | Emergency (ER) | payer MEDICARE ==
[~2025-08-02] VITALS: Ht 165.1 cm; Wt 100.7 kg
[~2025-08-02 13:35] MED LIST changes: +OXYC1TAB23 PO; +TAMS1CAP17 PO
[2025-08-02 13:38] VITALS: TEMP 97.2
[2025-08-02 14:08] LABS: KETONE, URINE AUTO RFX NEGATIVE (NEGATIVE); LEUKOCYTE ESTERASE UR AUTO RFX NEGATIVE (NEGATIVE); MUCUS, URINE RFX SMALL (NEGATIVE); NITRITE, URINE AUTO RFX NEGATIVE (NEGATIVE); RBC, URINE AUTO RFX TNTC /HPF (0-3); SQUAM EPITHELIAL CELL UR AURFX 0 /HPF (0-6); WBC, URINE AUTO RFX 6 /HPF (0-3)
[2025-08-02] MEDS: KETOROLAC 30 MG/ML 1 ML VIAL IM ONE (15:43)
[2025-08-02 16:16] VITALS: BP 170/73; O2SAT 96
== END 2025-08-02 16:17 | disposition home or self-care (01) ==
LOC: M ED 13:35
DX: N23 Unspecified renal colic (principal); I10 Essential (primary) hypertension; N20.0 Calculus of kidney; Z88.0 Allergy status to penicillin; Z79.1 Long term (current) use of non-steroidal anti-inflammatories (NSAID); Z79.01 Long term (current) use of anticoagulants; Z79.899 Other long term (current) drug therapy
CPT/HCPCS: 81001; 96372; 99283; J1885

== ENCOUNTER → 2025-08-07 | Outpatient (CLI) | payer MEDICARE ==
[2025-08-07 18:18] LABS: PLATELET COUNT, AUTOMATED 265 10^3/uL (150-450)
[2025-08-07 18:23] LABS: ALT/SGPT 20.0 U/L (7.0-40); AST/SGOT 20.0 U/L (<34); CALCIUM LEVEL 9.1 MG/DL (8.3-10.6); CARBON DIOXIDE LEVEL 26.0 MMOL/L (20-31); CHLORIDE LEVEL 107.0 MMOL/L (98-107); CREATININE FOR GFR 0.95 MG/DL (0.55-1.30); GLOMERULAR FILTRATION RATE 63.7 (>39); POTASSIUM SERUM 4.2 MMOL/L (3.5-5.1); SODIUM LEVEL 142.0 MMOL/L (136-145)
== END ==
LOC: M WUC 14:00
PROVIDERS: ATTEND Physician Assistant
DX: N18.30 Chronic kidney disease, stage 3 unspecified (principal); N39.0 Urinary tract infection, site not specified